=== PATIENT | female | born 1965 | race Caucasian/White ===

== ENCOUNTER 2017-03-20 05:49 | Observation (INO) | payer OTHER ==
[2017-03-16 17:17] VITALS: BMI 40.0
[~2017-03-20 05:49] MED LIST: DEXAMETHASONE SOD PHOSPHATE 10 MG/ML 1 ML VIAL IV ONE; LACTATED RINGERS 1,000 ML IV SCH; MIDAZOLAM 2 MG/2 ML VIAL IV PRN; ONDANSETRON 4 MG/2 ML VIAL IVP ONE; Pre Op ABX Message 1 EACH MISC MISCELLANE ONE
[2017-03-20] MEDS ORDERED: LIDOCAINE 1% 20 ML VIAL (10MG/ML) FOR IV START INTRADERMA ONE (07:00)
[2017-03-20 07:01] LABS: Glucose,Whole Blood 127 mg/dL (75-99)
[2017-03-20] MEDS ORDERED: NEOSTIGMINE 1 MG/ML 10 ML VIAL ONE (07:23)
[2017-03-20] MEDS ORDERED: HYDROmorphone (PF) 1 MG/ML ONE (07:23)
[2017-03-20] MEDS ORDERED: MIDAZOLAM 2 MG/2 ML VIAL ONE (07:23)
[2017-03-20] MEDS ORDERED: fentaNYL (PF) 50 MCG/ML 2 ML AMP ONE (07:23)
[2017-03-20] MEDS ORDERED: ROCURONIUM BROMIDE 10 MG/ML 10 ML VIAL IV ONE (07:23)
[2017-03-20] MEDS ORDERED: LIDOCAINE 1% INJ 10MG/ML (20 ML MDV) ONE (07:23)
[2017-03-20] MEDS ORDERED: PHENYLEPHRINE-0.9% NACL SYG 1 MG/10 ML SYRINGE ONE (07:23)
[2017-03-20] MEDS ORDERED: GLYCOPYRROLATE 0.2 MG/ML 2 ML VIAL ONE (07:23)
[2017-03-20] MEDS ORDERED: PROPOFOL 10 MG/ML 20 ML VIAL IV ONE (07:23)
[2017-03-20] MEDS ORDERED: SUCCINYLCHOLINE CHLORIDE VIAL 200 MG/10 ML VIAL IV ONE (07:23)
[2017-03-20] MEDS ORDERED: SODIUM CHLORIDE 0.9% 100 ML with ceFAZolin 2,000 MG IV ONE ×2 (07:40)
[2017-03-20] MEDS ORDERED: ceFAZolin 1,000 MG in SODIUM CHLORIDE 0.9% 1,000 ML IRRIGATION ONE (07:57)
[2017-03-20] MEDS ORDERED: hydrOXYzine PAMOATE 25 MG CAP PO PRN (08:57)
[2017-03-20] MEDS ORDERED: SENNOSIDES-DOCUSATE SODIUM 1 EACH TAB PO PRN (08:57)
[2017-03-20] MEDS ORDERED: TEMAZEPAM 15 MG CAP PO PRN (08:57)
[2017-03-20] MEDS ORDERED: ONDANSETRON 4 MG/2 ML VIAL IVP PRN (08:57)
[2017-03-20] MEDS ORDERED: HYDROmorphone 1 MG/ML 1 ML SYRINGE IVP PRN ×2 (08:57)
[2017-03-20] MEDS ORDERED: HYDROcodone/APAP 5-325MG 1 EACH TAB PO PRN (08:57)
[2017-03-20 09:00] VITALS: RESP 16
[2017-03-20] MEDS: HYDROmorphone 1 MG/ML 1 ML SYRINGE IVP PRN ×4 (09:03→21:30)
[2017-03-20 09:28] LABS: Glucose,Whole Blood 163 mg/dL (75-99)
[2017-03-20] MEDS ORDERED: NITROGLYCERIN SL TABS 0.4 MG TAB SUBLINGUAL PRN (10:18)
[2017-03-20] MEDS ORDERED: ALBUTEROL NEBULIZED 2.5 MG/3 ML INHALATION PRN (10:18)
[2017-03-20] MEDS: HYDROcodone/APAP 5-325MG 1 EACH TAB PO PRN ×3 (11:22→23:45)
[2017-03-20] MEDS: LOSARTAN 50 MG TAB PO SCH (11:23)
[2017-03-20] MEDS: METOPROLOL TARTRATE 25 MG TAB PO SCH (11:24)
[2017-03-20] MEDS: metFORMIN 500 MG TAB PO SCH ×2 (11:24→17:55)
[2017-03-20] MEDS: LACTATED RINGERS 1,000 ML IV SCH ×2 (11:25→22:52)
[2017-03-20 11:27] LABS: Glucose,Whole Blood 158 mg/dL (75-99)
[2017-03-20] MEDS: INSULIN LISPRO (humaLOG) 300 UNIT/3 ML VIAL SQ SCH ×3 (12:57→22:44)
[2017-03-20] MEDS: ceFAZolin 2 GM in SODIUM CHLORIDE 0.9% 100 ML IVPB SCH ×2 (15:35→23:45)
[2017-03-20] MEDS: HEPARIN SODIUM,PORCINE 5,000 UNIT/ML 1 ML VIAL SQ SCH ×2 (15:35→22:45)
[2017-03-20] MEDS: BENZOCAINE/MENTHOL LOZENG 1 EACH LOZENGE MUCOUS MEM PRN ×2 (16:07→21:30)
--- NOTE | 2017-03-20 16:20 | CONS ---
DATE OF CONSULTATION: REASON FOR CONSULTATION: Advice regarding management of diabetes mellitus, requested by Dr. Thomas. HISTORY OF PRESENT ILLNESS: This 51-year-old woman with a past medical history of multiple medical problems, including asthma, diabetes mellitus, fibromyalgia, hypertension, hyperlipidemia, history of DJD, sleep apnea, history of cholecystectomy, history of CAD, stent, being followed by Dr. Bharath Deng in the outpatient setting, underwent right shoulder arthroplasty by Dr. Thomas. The patient is being closely monitored. There is no history of any fever, rigor, or chills. No history of any headache, loss of consciousness, chest pain, palpitations, hematochezia, melena. No history of any diarrhea at this time. PAST MEDICAL HISTORY: 1. Asthma. 2. Diabetes mellitus. 3. Fibromyalgia. 4. Hypertension. 5. Hyperlipidemia. 6. History of myocardial infarction. 7. Sleep apnea; CPAP. 8. Appendectomy. 9. Cholecystectomy. 10. CAD, stent. HOME MEDICATIONS: 1. Glucophage 1000 mg p.o. b.i.d. 2. Cozaar 100 mg p.o. daily. 3. Synthroid 25 mcg p.o. daily. 4. Motrin 800 mg q.6 p.r.n. 5. Neurontin 600 mg p.o. t.i.d. 6. Cymbalta 60 mg p.o. daily. 7. Flexeril 10 mg at bedtime. 8. Vitamin D3, 4000 daily. 9. Aspirin 81 mg daily. 10. ProAir HFA 1 to 2 puffs q.6 p.r.n. 11. Zocor 40 mg at bedtime. 12. Nitrostat 0.4 sublingually q.5 p.r.n. 13. Lopressor 25 mg daily. 14. Senokot-S 2 tablets p.r.n. 15. Keflex 500 mg p.o. q.8 hours. ALLERGIES: 1. FAMVIR. 2. NIACIN. 3. COMPAZINE. 4. VALTREX. 5. VICODIN. FAMILY HISTORY: History of DVT in the family. SOCIAL HISTORY: Previous history of smoking. No history of alcohol intake. REVIEW OF SYSTEMS: ENT: No diminished hearing. No diminished vision. CARDIOVASCULAR: As mentioned earlier. RESPIRATORY: As mentioned earlier. GI: No nausea, vomiting. : No dysuria. NERVOUS SYSTEM: As mentioned earlier. ALLERGY/IMMUNOLOGY: No asthma, hayfever. MUSCULOSKELETAL: As mentioned earlier. HEMATOLOGY/ONCOLOGY: No history of anemia. ENDOCRINE: Diabetes mellitus, hypothyroidism. CONSTITUTIONAL: As mentioned earlier. DERMATOLOGY: Negative. RHEUMATOLOGY: Negative. PSYCHIATRY: As mentioned earlier. PHYSICAL EXAMINATION: Alert and oriented x3. Pulse is 108, blood pressure 140/94, regular rate and rhythm 16, temperature normal, pulse ox 96% on room air. HEENT: Conjunctivae normal. Oral mucosa moist. NECK: No jugular venous distention. No carotid bruit. No lymph node enlargement. CARDIOVASCULAR SYSTEM: S1 normal. S2 normal. No S3. No S4. RESPIRATORY SYSTEM: Breath sounds diminished at the bases. No rhonchi. No crackles. ABDOMEN: Soft, non-tender. No mass palpable. No hepatosplenomegaly. LEGS: No edema. No swelling. NERVOUS SYSTEM: Higher functions as mentioned earlier. Moves all 4 limbs. No focal motor or sensory deficit. LYMPHATICS: No lymph node palpable in neck, axillae or groin. SKIN: No ulcer, rash, bleeding. JOINTS: Status post right shoulder arthroplasty. ASSESSMENT: 1. Status post right shoulder arthroplasty. 2. Diabetes mellitus, type 2. 3. Asthma, chronic, intermittent. 4. Fibromyalgia. 5. Hypertension. 6. Hyperlipidemia. 7. Remote history of nicotine dependence. 8. History of myocardial infarction. 9. History of degenerative joint disease. 10. Sleep apnea. 11. Uses CPAP. 12. History of cholecystectomy. 13. History of coronary artery disease and stent. 14. FULL CODE. 15. Obesity with body mass index of 40. RECOMMENDATIONS AND DISCUSSION: In this 51-year-old woman who presented with multiple complex medical issues, we will monitor the patient closely, continue the current medications, continue symptomatic treatment. Otherwise, at this time I recommend continuing the home medications, DVT prophylaxis incentive spirometry. Will follow the patient closely with you. Patient may be asked to follow with primary physician closely in the outpatient setting. Thank you, Dr. Thomas, for letting us participate in the care of this patient. YON
[2017-03-20] MEDS: GABAPENTIN 300 MG CAP PO SCH ×2 (16:24→22:45)
[2017-03-20 17:04] LABS: Glucose,Whole Blood 117 mg/dL (75-99)
[2017-03-20 20:19] LABS: Glucose,Whole Blood 112 mg/dL (75-99)
[2017-03-20] MEDS ORDERED: ATORVASTATIN 20 MG TAB PO SCH (21:00)
[2017-03-20] MEDS ORDERED: CYCLOBENZAPRINE 10 MG TAB PO SCH (21:00)
[2017-03-21] MEDS: BENZOCAINE/MENTHOL LOZENG 1 EACH LOZENGE MUCOUS MEM PRN (04:54)
[2017-03-21] MEDS: HYDROcodone/APAP 5-325MG 1 EACH TAB PO PRN (05:47)
[2017-03-21] MEDS: LACTATED RINGERS 1,000 ML IV SCH (06:07)
[2017-03-21] MEDS ORDERED: LEVOTHYROXINE 25 MCG TAB PO SCH (06:30)
[2017-03-21 07:12] LABS: Glucose,Whole Blood 122 mg/dL (75-99)
[2017-03-21] MEDS ORDERED: HYDROcodone/APAP 10-325MG 1 EACH TAB PO PRN (07:58)
[2017-03-21] MEDS: INSULIN LISPRO (humaLOG) 300 UNIT/3 ML VIAL SQ SCH ×2 (08:28→12:26)
[2017-03-21] MEDS: metFORMIN 500 MG TAB PO SCH (08:29)
[2017-03-21] MEDS: METOPROLOL TARTRATE 25 MG TAB PO SCH (08:29)
[2017-03-21 08:30] VITALS: BP 138/75; PULSE 85; TEMP 98
[2017-03-21] MEDS: HEPARIN SODIUM,PORCINE 5,000 UNIT/ML 1 ML VIAL SQ SCH (08:30)
[2017-03-21] MEDS: GABAPENTIN 300 MG CAP PO SCH (08:30)
[2017-03-21] MEDS: LOSARTAN 50 MG TAB PO SCH (08:30)
[2017-03-21] MEDS: HYDROcodone/APAP 10-325MG 1 EACH TAB PO PRN ×2 (08:32→14:30)
[2017-03-21] MEDS ORDERED: ASPIRIN 81 MG CHEW PO SCH (09:00)
[2017-03-21] MEDS ORDERED: DULoxetine HCL 60 MG CAPSULE.DR PO SCH (09:00)
[2017-03-21] MEDS ORDERED: CHOLECALCIFEROL 1,000 UNIT TAB PO SCH (09:00)
[2017-03-21 11:49] LABS: Glucose,Whole Blood 80 mg/dL (75-99)
--- NOTE | 2017-03-21 17:10 | PN ---
DATE OF SERVICE: 03/21/2017 This 51-year-old woman who was admitted after right shoulder arthroplasty has improved significantly. No chest pain. No chest pain. No fever. Blood sugar has been monitored. On exam, alert and oriented x3. Pulse 85, blood pressure 138/75, respiratory rate 16, temperature 98 degrees, pulse ox 94% on room air. HEENT: Conjunctivae normal. NECK: No jugular venous distention. CARDIOVASCULAR SYSTEM: S1, S2 muffled. RESPIRATORY SYSTEM: Breath sounds diminished at the bases. No rhonchi. No crackles. ABDOMEN: Soft, non-tender. LEGS: No edema. No swelling. NERVOUS SYSTEM: No focal deficit. EXAMINATION OF RIGHT SHOULDER: Status post arthroplasty. LABS: Accu-Cheks 112, 122 and 80. ASSESSMENT: 1. Status post right shoulder arthroplasty. 2. Diabetes mellitus, type 2. 3. Asthma, chronic, intermittent. 4. Fibromyalgia history. 5. Hypertension, essential. 6. Hyperlipidemia. 7. Remote history of nicotine dependence. 8. History of myocardial infarction. 9. History of degenerative joint disease. 10. Sleep apnea. 11. History of CPAP usage. 12. History of cholecystectomy. 13. History of coronary artery disease and stent. 14. Obesity with body mass index of 40. 15. FULL CODE. RECOMMENDATIONS AND DISCUSSION: In this 51-year-old woman who presented with multiple complex medical issues, we will monitor the patient closely, continue the current medications, continue with symptomatic treatment, incentive spirometry. Otherwise, continue the home medications, pain medication, DVT prophylaxis and incentive spirometry. Follow closely with primary physician in the outpatient setting. Thank you, Dr. Thomas.
--- NOTE | 2017-03-22 22:50 | OP ---
DATE OF SERVICE: 03/20/2017 SURGEON: HARSH TUCKER DO CANTEEN OPERATOR: Ashlyn GARCIA PREOPERATIVE DIAGNOSIS: Torn right rotator cuff. POSTOPERATIVE DIAGNOSIS: Partial full-thickness tear of right rotator cuff with shoulder impingement. OPERATION: ANESTHESIA: ESTIMATED BLOOD LOSS: SPECIMENS REMOVED: COMPLICATIONS: OPERATIVE FINDINGS: DESCRIPTION OF PROCEDURE: Patient was taken to the operative suite and placed in supine position. General inhalation anesthesia was performed by Anesthesiology. She was placed in beach chair position and appropriately padded and secured. Betadine prep was carried out over the right shoulder. Sterile drapes were applied in the usual manner. A minimally invasive anterolateral incision was developed over the acromion. Sharp dissection through the subcutaneous tissue was performed. The superior acromioclavicular ligament was identified and dissected. The distal 1 cm of the clavicle was excised with a bone saw. Anterior deltoid was released along the anterolateral border. Coracoacromial ligament was released. Anterolateral decompression acromioplasty was performed. The width of the acromion was shaped with a bone saw and bone rasp. The tear was reapproximated with #1 Ethibond suture in running fashion. Area was irrigated. All the subacromial adhesions were dissected from the shoulder. The deltoid was then reapproximated back into the acromion with #1 Ethibond suture. Deep fascia was approximated with #1 Vicryl suture in running fashion. The subcutaneous tissue was reapproximated with 2-0 Vicryl suture in interrupted fashion. Skin was approximated with 3-0 Quill suture in subcuticular fashion. The incision was sealed with Dermabond. Sterile drapes were then applied. Patient was placed in an abductor pillow splint and transferred to the recovery room in satisfactory postoperative condition. GROSS PATHOLOGY: There was evidence of a partial-thickness tear of the right rotator cuff without bone avulsion previous decompression acromioplasty had been performed. YON
--- NOTE | 2017-04-05 13:56 | P.DS ---
Providers Date of admission: 03/21/17 03:26 Expected date of discharge: 03/21/17 Attending physician: Sarthak Thomas Consults: 03/20/17 08:57 Consult Physician Routine Consulting Provider: Molly Nielsen Consult Reason/Comments: medical management Do you want consulting provider notified?: Already Contacted Primary care physician: Bharath Justice Deng - Discharge Diagnosis(es) (1) Rotator cuff tear Status: Acute (2) Status post rotator cuff repair Status: Acute Hospital Course: This is a 51 year-old female with a known history of chronic impingement syndrome of the right shoulder. The patient presented to the orthopedic office for evaluation. After discussion and consideration the patient elects to proceed with a rotator cuff repair. The patient was seen preoperatively by her primary care physician and cleared for surgery. The patient was admitted to observation at [facility] on 03/20/2017 for a right shoulder rotator cuff repair with distal clavicle excision and acromioplasty by Dr. Thomas. The procedure was performed without complication or sequelae. The patient is doing well postoperatively. Labs and vital signs are stable and day of discharge. On the day of discharge the patient shoulder incision is healing well. There is minimal erythema. There is no drainage noted at this time. There is minimal soft tissue swelling to the [] upper extremity. The patient has full hand, wrist, and elbow motion without difficulty or pain. Neurovascular status to the right upper extremity is intact. The patient will be discharged home in good condition. Patient Condition at Discharge: Stable Plan - Discharge Summary New Discharge Prescriptions: Cephalexin [Keflex] 500 mg PO Q8HR #15 cap HYDROcodone/APAP 10-325MG [[place] 10-325] 1 - 2 tab PO Q4-6H PRN #90 tab PRN Reason: Pain Sennosides-Docusate Sodium [Senokot-S] 2 tab PO DAILY #30 tablet Discharge Medication List Albuterol Sulfate [Proair Hfa] 1 - 2 puff INHALATION RT-Q6H PRN 03/16/17 [ History] Aspirin 81 mg PO DAILY 03/16/17 [History] Cholecalciferol [Vitamin D3] 4,000 unit PO DAILY 03/16/17 [History] Cyclobenzaprine [Flexeril] 10 mg PO HS 03/16/17 [History] DULoxetine HCL [Cymbalta] 60 mg PO DAILY 03/16/17 [History] Gabapentin [Neurontin] 600 mg PO TID 03/16/17 [History] Ibuprofen [Motrin] 800 mg PO Q6HR PRN 03/16/17 [History] Levothyroxine Sodium [Synthroid] 25 mcg PO DAILY 03/16/17 [History] Losartan Potassium [Cozaar] 100 mg PO DAILY 03/16/17 [History] Metoprolol Tartrate [Lopressor] 25 mg PO DAILY 03/16/17 [History] Nitroglycerin Sl Tabs [Nitrostat] 0.4 mg SUBLINGUAL Q5M PRN 03/16/17 [History] Simvastatin [Zocor] 40 mg PO HS 03/16/17 [History] metFORMIN HCL [Glucophage] 1,000 mg PO BID 03/16/17 [History] Cephalexin [Keflex] 500 mg PO Q8HR #15 cap 03/20/17 [Rx] Sennosides-Docusate Sodium [Senokot-S] 2 tab PO DAILY #30 tablet 03/20/17 [Rx] HYDROcodone/APAP 10-325MG [[place] 10-325] 1 - 2 tab PO Q4-6H PRN #90 tab [Rx] Follow up Appointment(s)/Referral(s): Sarthak Thomas DO [Doctor of Osteopathic Medicine] - 04/04/17 9:30 am Patient Instructions/Handouts: Cephalexin (By mouth), Hydrocodone/ Acetaminophen (By mouth), Laxative, Stimulant Combination (By mouth), Rotator Cuff Tear Repair (DC) Activity/Diet/Wound Care/Special Instructions: Keep incision clean and dry Change dressing daily May shower in 3 days if no drainage from incision Keep arm sling/abductor pillow in place except when bathing Follow up with Dr. Thomas in 2 weeks. Call [facility] with any questions or concerns. [phone] Discharge Disposition: HOME SELF-CARE
== END 2017-03-21 15:09 | disposition home or self-care (01) ==
LOC: OR 05:49 → 5ONC 08:41 → OR 03-21 03:26
PROVIDERS: ADMIT Orthopaedic Surgery; ATTEND Orthopaedic Surgery
DX: M75.101 Unspecified rotator cuff tear or rupture of right shoulder, not specified as traumatic (principal); M75.41 Impingement syndrome of right shoulder; E11.9 Type 2 diabetes mellitus without complications; J45.20 Mild intermittent asthma, uncomplicated; M79.7 Fibromyalgia; I10 Essential (primary) hypertension; E78.5 Hyperlipidemia, unspecified; I25.2 Old myocardial infarction; G47.30 Sleep apnea, unspecified; Z99.89 Dependence on other enabling machines and devices; I25.10 Atherosclerotic heart disease of native coronary artery without angina pectoris; E03.9 Hypothyroidism, unspecified; M19.90 Unspecified osteoarthritis, unspecified site; Z68.41 Body mass index [BMI] 40.0-44.9, adult; E66.9 Obesity, unspecified; Z95.5 Presence of coronary angioplasty implant and graft; Z79.84 Long term (current) use of oral hypoglycemic drugs; Z79.899 Other long term (current) drug therapy; Z79.82 Long term (current) use of aspirin; Z87.891 Personal history of nicotine dependence; Z88.8 Allergy status to other drugs, medicaments and biological substances; Z88.5 Allergy status to narcotic agent
CPT/HCPCS: 23412; 23130; 96376; 96365; 96366; 96375; 83036; G0378; J2250; J0330; J1644 ×2; J1100; J2710; J0690 ×3; J2405; J2001; J3010; J1170; J2370; J2704

== ENCOUNTER 2019-01-06 15:23 | Emergency (ER) | payer BC ==
[2019-01-06 15:30] VITALS: TEMP 99.5
[2019-01-06] MEDS ORDERED: FAMOTIDINE 20 MG/2 ML VIAL IV STA (15:59)
[2019-01-06] MEDS ORDERED: diphenhydrAMINE 50 MG/ML 1 ML VIAL IVP STA (15:59)
--- NOTE | 2019-01-06 16:21 | ED ---
Allergic Reaction HPI - General Chief complaint: Allergic Reaction Stated complaint: med reaction Time Seen by Provider: 01/06/19 15:54 Source: patient, EMS, RN notes reviewed Mode of arrival: EMS Limitations: no limitations - History of Present Illness Initial Comments: 53-year-old female presents emergency Department by EMS for ALLERGIC reaction. Patient states that she's been sick recently was given a Medrol Dosepak and amoxicillin by PCP today took meds around 2:30 in reaction started around this time. Patient states that she's taken amoxicillin in the past no difficulty. Patient states she is having difficulty breathing broke out diffuse rash and hives. Patient was given epi, 25 mg Benadryl and Solu-Medrol EMS she does feel improved at this time. - Related Data Home Medications Medication Instructions Recorded Confirmed Albuterol Sulfate [Proair Hfa] 1 - 2 puff INHALATION RT-Q6H PRN 03/16/17 Aspirin 81 mg PO DAILY 03/16/17 03/21/17 Cholecalciferol [Vitamin D3] 4,000 unit PO DAILY 03/16/17 03/21/17 Cyclobenzaprine [Flexeril] 10 mg PO HS 03/16/17 03/21/17 DULoxetine HCL [Cymbalta] 60 mg PO DAILY 03/16/17 03/21/17 Gabapentin [Neurontin] 600 mg PO TID 03/16/17 03/21/17 Ibuprofen [Motrin] 800 mg PO Q6HR PRN 03/16/17 03/21/17 Levothyroxine Sodium [Synthroid] 25 mcg PO DAILY 03/16/17 03/21/17 Losartan Potassium [Cozaar] 100 mg PO DAILY 03/16/17 03/21/17 Metoprolol Tartrate [Lopressor] 25 mg PO DAILY 03/16/17 03/21/17 Nitroglycerin Sl Tabs [Nitrostat] 0.4 mg SUBLINGUAL Q5M PRN 03/16/17 03/21/17 Simvastatin [Zocor] 40 mg PO HS 03/16/17 03/21/17 metFORMIN HCL [Glucophage] 1,000 mg PO BID 03/16/17 03/21/17 Previous Rx's Medication Instructions Recorded Cephalexin [Keflex] 500 mg PO Q8HR #15 cap 03/20/17 Sennosides-Docusate Sodium 2 tab PO DAILY #30 tablet 03/20/17 [Senokot-S] HYDROcodone/APAP 10-325MG [[place] 1 - 2 tab PO Q4-6H PRN #90 tab 03/21/17 10-325] EPINEPHrine [Epipen 2-Werner] 0.3 mg IM ONCE PRN #1 pack 01/06/19 diphenhydrAMINE [Benadryl] 50 mg PO QID PRN #20 capsule 01/06/19 predniSONE 50 mg PO DAILY #3 tab 01/06/19 Allergies Allergy/AdvReac Type Severity Reaction Status Date / Time amoxicillin Allergy Anaphylaxis Verified 01/06/19 15:27 azithromycin Allergy Anaphylaxis Verified 01/06/19 15:27 famciclovir [From Famvir] Allergy Unknown Verified 03/21/17 07:31 niacin Allergy Rash/Hives Verified 03/21/17 07:31 [From Niaspan Extended-Release] prochlorperazine Allergy tardive Verified 03/21/17 07:31 [From Compazine] dyskinesia valacyclovir [From Valtrex] Allergy Unknown Verified 03/21/17 07:31 acetaminophen [From Vicodin] AdvReac Nausea & Verified 03/21/17 07:31 Vomiting hydrocodone [From Vicodin] AdvReac Nausea & Verified 03/21/17 07:31 Vomiting Review of Systems ROS Statement: Those systems with pertinent positive or pertinent negative responses have been documented in the HPI. ROS Other: All systems not noted in ROS Statement are negative. Past Medical History Past Medical History: Asthma, Diabetes Mellitus, Fibromyalgia, Hyperlipidemia, Hypertension, Myocardial Infarction (PR), Osteoarthritis (OA), Sleep Apnea/CPAP/ BIPAP Additional Past Medical History / Comment(s): uses CPAP Last Myocardial Infarction Date:: 2007 History of Any Multi-Drug Resistant Organisms: None Reported Past Surgical History: Appendectomy, Cholecystectomy, Heart Catheterization With Stent, Hysterectomy, Orthopedic Surgery Additional Past Surgical History / Comment(s): joseph. heel spurs, arthroscopy knees, growth removed from throat Past Anesthesia/Blood Transfusion Reactions: No Reported Reaction Date of Last Stent Placement:: 2007 Past Psychological History: No Psychological Hx Reported Smoking Status: Former smoker Past Alcohol Use History: None Reported Past Drug Use History: None Reported - Past Family History Sister(s) Family Medical History: Deep Vein Thrombosis (DVT) Father Family Medical History: Cancer General Exam Limitations: no limitations General appearance: alert, in no apparent distress Head exam: Present: atraumatic, normocephalic, normal inspection Eye exam: Present: normal appearance, PERRL, EOMI. Absent: scleral icterus, conjunctival injection, periorbital swelling ENT exam: Present: normal exam, normal oropharynx, mucous membranes moist Neck exam: Present: normal inspection, full ROM. Absent: tenderness, meningismus, lymphadenopathy Respiratory exam: Present: normal lung sounds bilaterally. Absent: respiratory distress, wheezes, rales, rhonchi, stridor Cardiovascular Exam: Present: normal rhythm, tachycardia, normal heart sounds. Absent: systolic murmur, diastolic murmur, rubs, gallop, clicks GI/Abdominal exam: Present: soft, normal bowel sounds. Absent: distended, tenderness, guarding, rebound, rigid Neurological exam: Present: alert, oriented X3, CN II-XII intact Skin exam: Present: rash, urticaria Course Vital Signs 01/06/19 15:27 Temperature 99.5 F Pulse Rate 113 H Respiratory 18 Rate Blood Pressure 178/95 O2 Sat by Pulse 97 Oximetry Medical Decision Making - Medical Decision Making 53-year-old female presents emergency Department for ALLERGIC reaction. Patient had anaphylactic reaction to most likely antibiotics. Patient will be given prednisone 3 days, continuation of Benadryl and EpiPen. Patient has improved and symptoms have resolved after treatment and observation emergency Department Disposition Clinical Impression: Anaphylaxis Disposition: HOME SELF-CARE Condition: Stable Instructions (If sedation given, give patient instructions): Anaphylaxis (ED) Additional Instructions: Please return to the Emergency Department if symptoms worsen or any other concerns. Prescriptions: diphenhydrAMINE [Benadryl] 50 mg PO QID PRN #20 capsule PRN Reason: allergic symptoms EPINEPHrine [Epipen 2-Werner] 0.3 mg IM ONCE PRN #1 pack PRN Reason: Anaphylaxis predniSONE 50 mg PO DAILY #3 tab Is patient prescribed a controlled substance at d/c from ED?: No Referrals: Gus Joseph MD [Primary Care Provider] - 1-2 days Time of Disposition: 16:34
[2019-01-06 16:55] VITALS: BP 138/80; PULSE 76; RESP 16
== END 2019-01-06 16:55 | disposition home or self-care (01) ==
LOC: EC 15:23
DX: T88.6XXA Anaphylactic reaction due to adverse effect of correct drug or medicament properly administered, initial encounter (principal); T38.0X5A Adverse effect of glucocorticoids and synthetic analogues, initial encounter; T36.0X5A Adverse effect of penicillins, initial encounter; I10 Essential (primary) hypertension; J45.909 Unspecified asthma, uncomplicated; E11.9 Type 2 diabetes mellitus without complications; M79.7 Fibromyalgia; E78.5 Hyperlipidemia, unspecified; G47.30 Sleep apnea, unspecified; I25.2 Old myocardial infarction; Z79.84 Long term (current) use of oral hypoglycemic drugs; Z79.82 Long term (current) use of aspirin; Z79.890 Hormone replacement therapy; Z79.899 Other long term (current) drug therapy; Z88.0 Allergy status to penicillin; Z88.1 Allergy status to other antibiotic agents; Z88.8 Allergy status to other drugs, medicaments and biological substances; Z88.5 Allergy status to narcotic agent; Z88.6 Allergy status to analgesic agent; Z87.891 Personal history of nicotine dependence; Z95.5 Presence of coronary angioplasty implant and graft; Z99.89 Dependence on other enabling machines and devices
CPT/HCPCS: 99284; 96374; 96375; J1200

== ENCOUNTER 2019-09-25 17:42 | Observation (INO) | payer BC ==
[2019-09-25] MEDS ORDERED: KETOROLAC 30 MG/ML 1 ML VIAL IVP STA (17:51)
--- NOTE | 2019-09-25 18:07 | ED ---
Chest Pain HPI - General Chief Complaint: Chest Pain Stated Complaint: Chest pain Time Seen by Provider: 09/25/19 17:42 Source: patient, EMS, RN notes reviewed Mode of arrival: EMS - History of Present Illness Initial Comments: This is a 53-year-old female with a history of AL and stent placement in the RCA 11 years ago who states she had the onset about 45 minutes to 60 minutes prior to arrival of mid lower sternal chest pain markedly severe in nature H/10 severity she was given aspirin as well as 3 nitroglycerin and IV pain medication and was brought down to a 6. She has some diaphoresis. He had some shortness of breath. She was at work at this time. No recent fevers chills nausea vomiting sweats cough or phlegm production prior to this. No other modifying factors at this time MD Complaint: chest pain - Related Data Home Medications Medication Instructions Recorded Confirmed Albuterol Sulfate [Proair Hfa] 1 - 2 puff INHALATION RT-Q6H PRN 03/16/17 01/06/19 Aspirin 81 mg PO DAILY 03/16/17 01/06/19 Cholecalciferol [Vitamin D3] 4,000 unit PO DAILY 03/16/17 01/06/19 Cyclobenzaprine [Flexeril] 10 mg PO HS 03/16/17 01/06/19 DULoxetine HCL [Cymbalta] 60 mg PO DAILY 03/16/17 01/06/19 Gabapentin [Neurontin] 600 mg PO TID 03/16/17 01/06/19 Ibuprofen [Motrin] 800 mg PO Q6HR PRN 03/16/17 01/06/19 Levothyroxine Sodium [Synthroid] 25 mcg PO DAILY 03/16/17 01/06/19 Losartan Potassium [Cozaar] 100 mg PO DAILY 03/16/17 01/06/19 Nitroglycerin Sl Tabs [Nitrostat] 0.4 mg SUBLINGUAL Q5M PRN 03/16/17 01/06/19 Simvastatin [Zocor] 40 mg PO HS 03/16/17 01/06/19 metFORMIN HCL [Glucophage] 1,000 mg PO BID 03/16/17 01/06/19 Cyanocobalamin (Vitamin B-12) 1,000 mcg PO DAILY 01/06/19 01/06/19 [Vitamin B-12] Sennosides-Docusate Sodium 2 tab PO DAILY PRN 01/06/19 01/06/19 [Senokot-S] sitaGLIPtin [Januvia] 100 mg PO DAILY 01/06/19 01/06/19 Previous Rx's Medication Instructions Recorded EPINEPHrine [Epipen 2-Werner] 0.3 mg IM ONCE PRN #1 pack 01/06/19 diphenhydrAMINE [Benadryl] 50 mg PO QID PRN #20 capsule 01/06/19 predniSONE 50 mg PO DAILY #3 tab 01/06/19 Allergies Allergy/AdvReac Type Severity Reaction Status Date / Time amoxicillin Allergy Anaphylaxis Verified 01/06/19 16:35 azithromycin Allergy Anaphylaxis Verified 01/06/19 16:35 famciclovir [From Famvir] Allergy Unknown Verified 01/06/19 16:35 niacin Allergy Rash/Hives Verified 01/06/19 16:35 [From Niaspan Extended-Release] prochlorperazine Allergy tardive Verified 01/06/19 16:35 [From Compazine] dyskinesia valacyclovir [From Valtrex] Allergy Unknown Verified 01/06/19 16:35 acetaminophen [From Vicodin] AdvReac Nausea & Verified 01/06/19 16:35 Vomiting hydrocodone [From Vicodin] AdvReac Nausea & Verified 01/06/19 16:35 Vomiting Review of Systems ROS Statement: Those systems with pertinent positive or pertinent negative responses have been documented in the HPI. ROS Other: All systems not noted in ROS Statement are negative. EKG Findings - EKG Results: EKG: interpreted by ERMD, sinus rhythm (EKG shows sinus tachycardia of 106. Interval 154 QRS duration 96 QT since QTC 366/46 nonspecific anterior configuration.) Past Medical History Past Medical History: Asthma, Diabetes Mellitus, Fibromyalgia, Hyperlipidemia, Hypertension, Myocardial Infarction (AL), Osteoarthritis (OA), Sleep Apnea/CPAP/BIPAP Additional Past Medical History / Comment(s): uses CPAP Last Myocardial Infarction Date:: 2007 History of Any Multi-Drug Resistant Organisms: None Reported Past Surgical History: Appendectomy, Cholecystectomy, Heart Catheterization With Stent, Hysterectomy, Orthopedic Surgery Additional Past Surgical History / Comment(s): joseph. heel spurs, arthroscopy knees, growth removed from throat Past Anesthesia/Blood Transfusion Reactions: No Reported Reaction Date of Last Stent Placement:: 2007 Past Psychological History: No Psychological Hx Reported Smoking Status: Former smoker Past Alcohol Use History: None Reported Past Drug Use History: None Reported - Past Family History Sister(s) Family Medical History: Deep Vein Thrombosis (DVT) Father Family Medical History: Cancer General Exam - General Exam Comments Initial Comments: This is a well-developed well-nourished awake alert oriented 3 female General appearance: alert, anxious Head exam: Present: atraumatic, normocephalic, normal inspection Eye exam: Present: normal appearance, PERRL, EOMI. Absent: scleral icterus, conjunctival injection, periorbital swelling ENT exam: Present: normal exam, mucous membranes moist Neck exam: Present: normal inspection, full ROM, other (No stridor JVD or bruits). Absent: tenderness, meningismus, lymphadenopathy Respiratory exam: Present: normal lung sounds bilaterally, chest wall tenderness (Tennis palpation along the costosternal margins mostly on the right.). Absent: respiratory distress, wheezes, rales, rhonchi, stridor Cardiovascular Exam: Present: normal rhythm, tachycardia, normal heart sounds. Absent: systolic murmur, diastolic murmur, rubs, gallop, clicks GI/Abdominal exam: Present: soft, normal bowel sounds. Absent: distended, tenderness, guarding, rebound, rigid Extremities exam: Present: normal inspection, full ROM, normal capillary refill. Absent: tenderness, pedal edema, joint swelling, calf tenderness Back exam: Present: normal inspection Neurological exam: Present: alert, oriented X3, CN II-XII intact Psychiatric exam: Present: normal affect, normal mood Skin exam: Present: warm, dry, intact, normal color. Absent: rash Course Vital Signs 09/25/19 09/25/19 17:44 19:08 Temperature 98.4 F Pulse Rate 115 H 87 Respiratory 20 18 Rate Blood Pressure 163/95 154/80 O2 Sat by Pulse 99 96 Oximetry Chest Pain MDM - MDM I did review the imaging and report no acute findings. Patient does have continued chest discomfort though it is atypical and likely somewhat secondary to chest wall. She will be admitted I did discuss the case with her and with Dr. Villalpando. Disposition Clinical Impression: Atypical chest pain, Chest wall syndrome Disposition: ADMITTED IP TO THIS HOSP Condition: Fair Referrals: Gus Joseph MD [Primary Care Provider] - 1-2 days
[2019-09-25 18:08] LABS: Basophils # (A) 0.1 k/uL (0-0.2); Basophils % (A) 1 %; Eosinophils # (A) 0.6 k/uL (0-0.7); Eosinophils % (A) 5 %; Lymphocytes # (A) 3.7 k/uL (1.0-4.8); Lymphocytes % (A) 30 %; MCH 29.4 pg (25.0-35.0); MCHC 33.3 g/dL (31.0-37.0); MCV 88.4 fL (80.0-100.0); Monocytes # (A) 0.6 k/uL (0-1.0); Monocytes % (A) 5 %; Neutrophils # (A) 7.1 k/uL (1.3-7.7); Neutrophils % (A) 57 %; Platelet Count 372 k/uL (150-450); RBC 4.75 m/uL (3.80-5.40); RDW 12.4 % (11.5-15.5); WBC 12.4 k/uL (3.8-10.6)
[2019-09-25 18:10] LABS: ALT 40 U/L (9-52); AST 45 U/L (14-36); African American GFR (CKD) >90 (>60 ml/min/1.73 sqM); Albumin 4.4 g/dL (3.5-5.0); Alkaline Phosphatase 71 U/L (38-126); Anion Gap 12 mmol/L; Blood Urea Nitrogen 9 mg/dL (7-17); Calcium 9.6 mg/dL (8.4-10.2); Carbon Dioxide 22 mmol/L (22-30); Chloride 103 mmol/L (98-107); Creatine Kinase 94 U/L (30-135); Glucose 183 mg/dL (74-99); Magnesium 1.6 mg/dL (1.6-2.3); Non-African American GFR(CKD) >90 (>60 ml/min/1.73 sqM); Potassium 3.9 mmol/L (3.5-5.1); Sodium 137 mmol/L (137-145); Total Bilirubin 0.2 mg/dL (0.2-1.3); Total Protein 7.6 g/dL (6.3-8.2)
[2019-09-25 18:26] LABS: D-Dimer 0.27 mg/L FEU (<0.60); INR 0.9 (<1.2); Partial Thromboplastin Time 23.2 sec (22.0-30.0); Prothrombin Time 9.6 sec (9.0-12.0)
--- NOTE | 2019-09-25 18:36 | XR ---
EXAMINATION TYPE: XR chest 2V DATE OF EXAM: 09/25/2019 COMPARISON: 09/18/2012 HISTORY: Chest pain TECHNIQUE: Frontal and lateral views of the chest are obtained. FINDINGS: Heart and mediastinum are normal. Lungs are clear. Diaphragm is normal. Bony thorax appear s normal. There are chest leads. IMPRESSION: Normal chest. No change.
[2019-09-25] MEDS ORDERED: NITROGLYCERIN SL TABS 0.4 MG TAB SUBLINGUAL PRN (19:18)
[2019-09-25] MEDS ORDERED: HEPARIN SODIUM,PORCINE 5,000 UNIT/ML 1 ML VIAL IV ONE (19:18)
[2019-09-25] MEDS ORDERED: ALBUTEROL NEBULIZED 2.5 MG/3 ML INHALATION PRN (19:20)
[2019-09-25] MEDS ORDERED: diphenhydrAMINE 50 MG CAP PO PRN (19:20)
[2019-09-25] MEDS ORDERED: SENNOSIDES-DOCUSATE SODIUM 1 EACH TAB PO PRN (19:20)
[2019-09-25] MEDS ORDERED: HEPARIN SOD,PORK IN 0.45% NACL 25,000 UNIT in 0.45% NACL 1 250ML.BAG IV SCH (19:30)
[2019-09-25] MEDS: SODIUM CHLORIDE 0.9% 1,000 ML IV SCH (19:37)
[2019-09-25] MEDS ORDERED: HEPARIN SODIUM,PORCINE 5,000 UNIT/ML 1 ML VIAL IV PRN (19:58)
[2019-09-25 20:22] LABS: Glucose,Whole Blood 126 mg/dL (75-99)
[2019-09-25] MEDS: ATORVASTATIN 20 MG TAB PO SCH (21:09)
[2019-09-25] MEDS: GABAPENTIN 300 MG CAP PO SCH (21:09)
[2019-09-25] MEDS: CYCLOBENZAPRINE 10 MG TAB PO SCH (21:09)
[2019-09-25] MEDS: metFORMIN 500 MG TAB PO SCH (21:09)
[2019-09-25] MEDS: IBUPROFEN 800 MG TAB PO PRN (23:24)
[2019-09-25] MEDS: NITROGLYCERIN OINT 1 INCH/GM PACKET TOPICAL SCH (23:24)
[2019-09-26 04:52] VITALS: RESP 18
[2019-09-26] MEDS: LEVOTHYROXINE 25 MCG TAB PO SCH (06:38)
[2019-09-26] MEDS: IBUPROFEN 800 MG TAB PO PRN ×2 (06:38→14:35)
[2019-09-26] MEDS: NITROGLYCERIN OINT 1 INCH/GM PACKET TOPICAL SCH (06:38)
[2019-09-26 06:44] LABS: Glucose,Whole Blood 145 mg/dL (75-99)
[2019-09-26] MEDS ORDERED: ASPIRIN 325 MG TAB PO SCH (09:00)
--- NOTE | 2019-09-26 09:27 | ECHOF ---
Referral Reason:cp MEASUREMENTS -------- HEIGHT: 167.6 cm WEIGHT: 108.4 kg BP: RVIDd: 2.4 cm (< 3.3) IVSd: 1.4 cm (0.6 - 1.1) LVIDd: 3.6 cm (3.9 - 5.3) LVPWd: 1.4 cm (0.6 - 1.1) IVSs: 1.9 cm LVIDs: 2.3 cm LVPWs: 2.0 cm LAESV Index (A-L): 18.29 ml/m Ao Diam: 3.4 cm (2.0 - 3.7) AV Cusp: 1.7 cm (1.5 - 2.6) LA Diam: 3.2 cm (2.7 - 3.8) MV EXCURSION: 17.007 mm (> 18.000) MV EF SLOPE: 66 mm/s (70 - 150) EPSS: 0.5 cm MV E Angel: 1.09 m/s MV DecT: 229 ms MV A Angel: 1.06 m/s MV E/A Ratio: 1.03 RAP: 5.00 mmHg RVSP: 9.79 mmHg FINDINGS -------- Sinus rhythm. This was a technically adequate study. The left ventricular size is normal. There is moderate concentric left ventricular hypertrophy. O verall left ventricular systolic function is normal with, an EF between 55 - 60 %. Normal LAP Grade 1 Diastolic Dysfunction. The right ventricle is normal in size. The left atrial size is normal. Normal LA size by volume 22+/-6 ml/m2. The right atrial size is normal. The aortic valve was not well visualized. The mitral valve is normal. There is trace mitral regurgitation. The tricuspid valve appears structurally normal. Trace tricuspid regurgitation present. Right tameka tricular systolic pressure is normal at < 35 mmHg. There is no pulmonic regurgitation present. The aortic root size is normal. IVC Not well visulized. There is no pericardial effusion. CONCLUSIONS -------- 1. Sinus rhythm. 2. This was a technically adequate study. 3. The left ventricular size is normal. 4. There is moderate concentric left ventricular hypertrophy. 5. Overall left ventricular systolic function is normal with, an EF between 55 - 60 %. 6. Normal LAP Grade 1 Diastolic Dysfunction. 7. The right ventricle is normal in size. 8. The left atrial size is normal. 9. Normal LA size by volume 22+/-6 ml/m2. 10. The right atrial size is normal. 11. The aortic valve was not well visualized. 12. The mitral valve is normal. 13. There is trace mitral regurgitation. 14. The tricuspid valve appears structurally normal. 15. Trace tricuspid regurgitation present. 16. Right ventricular systolic pressure is normal at < 35 mmHg. 17. There is no pulmonic regurgitation present. 18. The aortic root size is normal. 19. IVC Not well visulized. 20. There is no pericardial effusion. EMERGENCY CARE TECH: Ida Corcoran RDCS
[2019-09-26] MEDS ORDERED: DOBUTamine DRIP for NUC MED 500 MG in DEXTROSE/WATER 1 250ML.BAG IV ONE (09:58)
--- NOTE | 2019-09-26 10:14 | P.CRDCN ---
History of Present Illness History of present illness: HISTORY OF PRESENTING ILLNESS This is a pleasant 53-year-old female past medical history significant for coronary artery disease, myocardial infarction, diabetes mellitus, hyperten rosario, dyslipidemia, former nicotine dependence and hypothyroidism. She presented with chest pain. She follows in the office with Dr. Sherwood although it has been a few years since her last office visit. We have been asked to see him in consultation for chest pain. She states yesterday while at work she was putting parts on the shelf that weighed approximately 20 pounds. While lifting these parts up above her head she had an acute onset of a tight squeezing pain in the chest that radiated to the left shoulder. This was associated with shortness of breath, nausea, rapid heartbeat and diaphoresis. She sat down and called EMS. Her symptoms persisted and have not fully subsided. She did receive sublingual nitroglycerin per EMS but did dissipate her pain somewhat but not completely. DIAGNOSTICS EKG reveals sinus tachycardia heart rate 106, poor R-wave progression and inferior Q-wave secondary to previous inferior wall NH. Chest xray negative for an acute cardiopulmonary process. Laboratory reviewed, cardiac enzymes negative 2, d-dimer unremarkable, WBC 12.4, lipase 510. Current cardiac medications include aspirin 81 mg daily, losartan 100 mg daily, simvastatin 40 mg daily. REVIEW OF SYSTEMS At the time of my exam: CONSTITUTIONAL: Denies fever or chills. CARDIOVASCULAR: Denies chest pain, shortness of breath, orthopnea, PND or palpitations. RESPIRATORY: Denies cough. GASTROINTESTINAL: Denies abdominal pain, diarrhea, constipation, nausea or vomiting. MUSCULOSKELETAL: Denies myalgias. NEUROLOGIC: Denies numbness, tingling or weakness. ENDOCRINE: Denies fatigue, weight change, polydipsia or polyurina. GENITOURINARY: Denies burning, hematuria or urgency with micturation. HEMATOLOGIC: Denies history of anemia or bleeding. PHYSICAL EXAMINATION Blood pressure 152/86 heart rate 77 afebrile and maintaining oxygen saturaiton on room air. CONSTITUTIONAL: No apparent distress. HEENT: Head is normocephalic. Pupils are equal, round. Sclerae anicteric. Mucous membranes of the mouth are moist. No JVD. No carotid bruit. CHEST EXAMINATION: Lungs are clear to auscultation. Positive chest wall tenderness is noted on palpation, not with deep breathing. HEART EXAMINATION: Regular rate and rhythm. S1, S2 heard. No murmurs, gallops or rub. ABDOMEN: Soft, mildly tender epigastric region. Positive bowel sounds. EXTREMITIES: 2+ peripheral pulses, no lower extremity edema and no calf tenderness. NEUROLOGIC EXAMINATION: Patient is awake, alert and oriented x3. ASSESSMENT Chest pain, atypical for angina. An acute event has been ruled out. Epigastric reproducible discomfort with elevated lipase, could be underlying pancreatitis Leukocytosis History of coronary artery disease s/p PCI RCA 2007 History of myocardial infarction Hypertension Dyslipidemia Diabetes mellitus Obesity, BMI 38 PLAN An acute coronary event has been ruled out. Obtain 2D echocardiogram and doppler study to assess cardiac structure and function. Perform dobutamine stress echocardiogram and doppler study to assess for stress induced ischemia. Pain is atypical and reproducible may be related to underlying pancreatitis, however will rule out progression of disease. If stress test is normal, ongoing evaluation of GI etiology of pain per primary care team. Thank you kindly for this consultation. Nurse Practitioner note has been reviewed, I agree with a documented findings and plan of care. Patient was seen and examined. Past Medical History Past Medical History: Asthma, Diabetes Mellitus, Fibromyalgia, Hyperlipidemia, Hypertension, Myocardial Infarction (NH), Osteoarthritis (OA), Sleep Apnea/CPAP/BIPAP, Thyroid Disorder Additional Past Medical History / Comment(s): uses CPAP, hypothyroid Last Myocardial Infarction Date:: 2007 History of Any Multi-Drug Resistant Organisms: None Reported Past Surgical History: Appendectomy, Cholecystectomy, Heart Catheterization With Stent, Hysterectomy, Orthopedic Surgery Additional Past Surgical History / Comment(s): joseph. heel spurs, arthroscopy knees, growth removed from throat Past Anesthesia/Blood Transfusion Reactions: No Reported Reaction Date of Last Stent Placement:: 2007 Past Psychological History: Depression Additional Psychological History / Comment(s): depression well controlled on current medications Smoking Status: Former smoker Past Alcohol Use History: None Reported Additional Past Alcohol Use History / Comment(s): quit smoking 01-09-07, smoked up to 3ppd for 25 yrs. Past Drug Use History: None Reported - Past Family History Sister(s) Family Medical History: Deep Vein Thrombosis (DVT) Father Family Medical History: Cancer Medications and Allergies Home Medications Medication Instructions Recorded Confirmed Type Aspirin 81 mg PO DAILY@1000 03/16/17 09/25/19 History Cholecalciferol [Vitamin D3] 4,000 unit PO DAILY@1000 03/16/17 09/25/19 History Cyclobenzaprine [Flexeril] 10 mg PO HS@0000 03/16/17 09/25/19 History DULoxetine HCL [Cymbalta] 60 mg PO DAILY@1000 03/16/17 09/25/19 History Gabapentin [Neurontin] 600 mg PO TID PRN 03/16/17 09/25/19 History Levothyroxine Sodium [Synthroid] 25 mcg PO DAILY@1000 03/16/17 09/25/19 History Losartan Potassium [Cozaar] 100 mg PO DAILY@1000 03/16/17 09/25/19 History Simvastatin [Zocor] 40 mg PO HS@0000 03/16/17 09/25/19 History metFORMIN HCL [Glucophage] 1,000 mg PO BID@1000,0000 03/16/17 09/25/19 History Cyanocobalamin (Vitamin B-12) 1,000 mcg PO DAILY@1000 01/06/19 09/25/19 History [Vitamin B-12] EPINEPHrine [Epipen 2-Werner] 0.3 mg IM ONCE PRN #1 pack 01/06/19 09/25/19 Rx sitaGLIPtin [Januvia] 100 mg PO DAILY@99901/06/19 09/25/19 History Albuterol Sulfate [Ventolin HFA] 1 - 2 puff INHALATION RT-QID PRN 09/25/19 History Ibuprofen [Motrin] 800 mg PO TID PRN 09/25/19 09/25/19 History Sertraline [Zoloft] 50 mg PO DAILY@99909/25/19 09/25/19 History Allergies Allergy/AdvReac Type Severity Reaction Status Date / Time amoxicillin Allergy Anaphylaxis Verified 09/25/19 20:24 azithromycin Allergy Anaphylaxis Verified 09/25/19 20:24 famciclovir [From Famvir] Allergy Unknown Verified 09/25/19 20:24 niacin Allergy Rash/Hives Verified 09/25/19 20:24 [From Niaspan Extended-Release] prochlorperazine Allergy tardive Verified 09/25/19 20:24 [From Compazine] dyskinesia valacyclovir [From Valtrex] Allergy Unknown Verified 09/25/19 20:24 acetaminophen [From Vicodin] AdvReac Nausea & Verified 09/25/19 20:24 Vomiting hydrocodone [From Vicodin] AdvReac Nausea & Verified 09/25/19 20:24 Vomiting Physical Exam Vitals: Vital Signs Temp Pulse Pulse Pulse Resp BP BP 09/26/19 06:54 97.7 F 77 18 09/26/19 04:00 97.7 F 78 18 138/73 09/26/19 00:00 97.7 F 87 17 141/92 09/25/19 20:00 97.0 F L 91 18 159/76 09/25/19 19:08 87 18 154/80 09/25/19 17:44 98.4 F 115 H 20 163/95 BP Pulse Ox 09/26/19 06:54 152/86 96 09/26/19 04:00 95 09/26/19 00:00 96 09/25/19 20:00 94 L 09/25/19 19:08 96 09/25/19 17:44 99 Intake and Output 09/25/19 09/26/19 09/26/19 22:59 06:59 14:59 Intake Total 60.01 Balance 60.01 Intake: Intake, IV Titration 60.01 Amount Heparin Sod,Pork in 0.45% 60.01 NaCl 25,000 unit In 0.45 % NaCl 1 250ml.bag @ 9.2 UNITS/KG/HR 9.974 mls/hr IV .Q24H [facility] Rx#: [id number] Other: Voiding Method Toilet Toilet # Voids 1 Weight 108.409 kg Results 09/25/19 17:55 09/25/19 17:55 Cardiac Enzymes 09/25/19 09/25/19 09/26/19 Range/Units 17:55 17:55 00:22 AST 45 H (14-36) U/L Troponin I <0.012 <0.012 (0.000-0.034) ng/mL Coagulation 09/25/19 09/26/19 Range/Units 17:55 00:22 PT 9.6 (9.0-12.0) sec APTT 23.2 29.8 (22.0-30.0) sec CBC 09/25/19 Range/Units 17:55 WBC 12.4 H (3.8-10.6) k/uL RBC 4.75 (3.80-5.40) m/uL Hgb 14.0 (11.4-16.0) gm/dL Hct 42.0 (34.0-46.0) % Plt Count 372 (150-450) k/uL Comprehensive Metabolic Panel 09/25/19 Range/Units 17:55 Sodium 137 (137-145) mmol/L Potassium 3.9 (3.5-5.1) mmol/L Chloride 103 (98-107) mmol/L Carbon Dioxide 22 (22-30) mmol/L BUN 9 (7-17) mg/dL Creatinine 0.45 L (0.52-1.04) mg/dL Glucose 183 H (74-99) mg/dL Calcium 9.6 (8.4-10.2) mg/dL AST 45 H (14-36) U/L ALT 40 (9-52) U/L Alkaline Phosphatase 71 (38-126) U/L Total Protein 7.6 (6.3-8.2) g/dL Albumin 4.4 (3.5-5.0) g/dL Current Medications Generic Name Dose Route Start Last Admin Trade Name Freq PRN Reason Stop Dose Admin Albuterol Sulfate 2.5 mg 09/25/19 19:20 Ventolin Nebulized INHALATION RT-Q6H PRN Dyspnea Atorvastatin Calcium 20 mg 09/25/19 21:00 09/25/19 21:09 Lipitor PO 20 mg HS STAN Administration Cholecalciferol 4,000 unit 09/26/19 09:00 Vitamin D3 (25 Mcg = 1000 Iu) PO DAILY STAN Cyanocobalamin 1,000 mcg 09/26/19 09:00 Vitamin B-12 PO DAILY STAN Cyclobenzaprine HCl 10 mg 09/25/19 21:00 09/25/19 21:09 Flexeril PO 10 mg HS STAN Administration Diphenhydramine HCl 50 mg 09/25/19 19:20 Benadryl PO QID PRN allergic symptoms Duloxetine HCl 60 mg 09/26/19 09:00 Cymbalta PO DAILY [facility] Gabapentin 600 mg 09/25/19 22:00 09/25/19 21:09 Neurontin PO 600 mg TID STAN Administration Heparin Sodium (Porcine) 0 unit 09/25/19 19:58 09/26/19 01:43 Heparin IV 4,000 unit PER PROTOCOL PRN Administration Low PTT Protocol Sodium Chloride 1,000 mls @ 20 mls/hr 09/25/19 19:30 09/25/19 19:37 Saline 0.9% IV 20 mls/hr .Q24H [facility] Administration Heparin Sodium/Sodium Chloride 250 mls @ 9.974 mls/hr 09/25/19 19:30 09/26/19 01:35 25,000 unit/ Sodium Chloride IV 12.2 units/kg/hr .Q24H [facility] 13.226 mls/hr Titration Protocol 9.2 UNITS/KG/HR Ibuprofen 800 mg 09/25/19 19:20 09/26/19 06:38 Motrin PO 800 mg Q6HR PRN Administration Pain Levothyroxine Sodium 25 mcg 09/26/19 06:30 09/26/19 06:38 Synthroid PO 25 mcg DAILY@0630 [facility] Administration Linagliptin 5 mg 09/26/19 09:00 Tradjenta PO DAILY [facility] Losartan Potassium 100 mg 09/26/19 09:00 Cozaar PO DAILY [facility] Metformin HCl 1,000 mg 09/25/19 21:00 09/25/19 21:09 Glucophage PO 1,000 mg BID [facility] Administration Nitroglycerin 0.4 mg 09/25/19 19:18 Nitrostat SUBLINGUAL Q5M PRN Chest Pain Nitroglycerin 1 inch 09/26/19 00:00 09/26/19 06:38 Nitro-Bid Oint TOPICAL 1 inch Q6HR [facility] Administration Prednisone 50 mg 09/26/19 09:00 PO DAILY [facility] Senna/Docusate Sodium 2 each 09/25/19 19:20 Senokot-S PO DAILY PRN Constipation Intake and Output 09/25/19 09/26/19 09/26/19 22:59 06:59 14:59 Intake Total 60.01 Balance 60.01 Intake: Intake, IV Titration 60.01 Amount Heparin Sod,Pork in 0.45% 60.01 NaCl 25,000 unit In 0.45 % NaCl 1 250ml.bag @ 9.2 UNITS/KG/HR 9.974 mls/hr IV .Q24H [facility] Rx#: [id number] Other: Voiding Method Toilet Toilet # Voids 1 Weight 108.409 kg 09/25/19 17:55 09/25/19 17:55
[2019-09-26 11:47] LABS: Glucose,Whole Blood 147 mg/dL (75-99)
--- NOTE | 2019-09-26 11:53 | ECHOS ---
STRESS ECHOCARDIOGRAM DATE OF SERVICE: 09/26/2019 INDICATIONS: Chest pain. MEDICATIONS: BASELINE HEART RATE: 80 BASELINE BLOOD PRESSURE: 177/99 MAXIMUM HEART RATE: 159 MAXIMUM BLOOD PRESSURE: 214/71 85% MPHR: 141 100% MPHR: 166 METS: MAXIMUM STAGE REACHED: TOTAL EXERCISE TIME: CLINICAL INFORMATION: This is a dobutamine stress echo. History of chest pain, midsternal chest discomfort and past history of CAD. Baseline heart rate 80 beats per minute. Baseline blood pressure 177/99 mmHg. Baseline 12-lead ECG shows normal sinus rhythm, normal cardiac intervals, normal ST segments. Patient received dobutamine infusion per protocol. Peak heart rate 139 beats per minute. Hypertensive response noted to 214/71 mmHg peak blood pressure. There was no ECG evidence for ischemia. No arrhythmias noted. Baseline 2D echo showed normal LV size and systolic function without segmental wall motion abnormalities. With dobutamine, there was a stepwise increment in overall LV contractility without development of any wall motion abnormalities. At recovery, regional global LV systolic function remained normal. IMPRESSION: No ECG or echocardiographic evidence for ischemia. MMODL / IJN: [id number] /
[2019-09-26] MEDS: GABAPENTIN 300 MG CAP PO SCH ×3 (11:55→19:42)
[2019-09-26] MEDS: CYANOCOBALAMIN 500 MCG TAB PO SCH (11:55)
[2019-09-26] MEDS: LOSARTAN 50 MG TAB PO SCH (11:55)
[2019-09-26] MEDS: predniSONE 50 MG TAB PO SCH (11:55)
[2019-09-26] MEDS: metFORMIN 500 MG TAB PO SCH ×2 (11:55→19:42)
[2019-09-26] MEDS: ASPIRIN 81 MG PO SCH (11:56)
[2019-09-26] MEDS: LINAGLIPTIN 5 MG TABLET PO SCH (11:56)
[2019-09-26] MEDS: DULoxetine HCL 60 MG CAPSULE.DR PO SCH (11:56)
[2019-09-26] MEDS: CHOLECALCIFEROL 1,000 UNIT TAB PO SCH (11:56)
[2019-09-26 16:33] LABS: Glucose,Whole Blood 178 mg/dL (75-99)
--- NOTE | 2019-09-26 18:30 | US ---
EXAMINATION TYPE: US gallbladder DATE OF EXAM: 09/26/2019 COMPARISON: NONE CLINICAL HISTORY: r/o duct blockage, elevated pancreatic enzymes per patient; midline chest pain radi ating up to left shoulder, nausea; pancreatitis and diabetic per patient; Gallbladder removed EXAM MEASUREMENTS: Liver Length: 21.9 cm Gallbladder Wall: surgically absent CBD: 0.5 cm Right Kidney: 13.6 x 6.8 x 4.6 cm Pancreas: hyperechoic, tail obscured by overlying bowel gas; prominent pancreatic duct = 0.4cm (abno rmal duct size as is greater than 0.2cm) Liver: enlarged, hyperechoic to right renal cortex suggests fatty liver Gallbladder: surgically absent Evidence for sonographic De Leon's sign: tender at epigastric area CBD: wnl Right Kidney: No hydronephrosis or masses seen; large for size (normal = 9 to 12 cm). IMPRESSION: Cholecystectomy. Hyperechoic liver suggestive of fatty infiltration. Pancreatic duct uppe r limit of normal size and measures 4 mm. Bile ducts are not dilated.
[2019-09-26] MEDS: SODIUM CHLORIDE 0.9% 1,000 ML IV SCH (19:19)
[2019-09-26] MEDS ORDERED: MORPHINE SULFATE 2 MG/ML SYRINGE IVP STA (19:22)
[2019-09-26] MEDS: CYCLOBENZAPRINE 10 MG TAB PO SCH (19:42)
[2019-09-26] MEDS: METOPROLOL TARTRATE 25 MG TAB PO SCH (19:42)
[2019-09-26] MEDS: ATORVASTATIN 20 MG TAB PO SCH (19:42)
[2019-09-26 19:51] LABS: Glucose,Whole Blood 227 mg/dL (75-99)
--- NOTE | 2019-09-27 00:23 | P.HPIM ---
History of Present Illness H&P Date: 09/26/19 Chief Complaint: Chest pain Patient is a 53-year-old female with known history of diabetes type 2 insulin- dependent, fibromyalgia, hypertension, hyperlipidemia, coronary artery disease with history of stent placement, depression and hypothyroidism came to ER with complaints of chest pain and abdominal pain. Patient is having pain mainly in the upper abdomen radiating up towards the left side of his chest. Pressure like tightness and radiated to the left shoulder. Erosive with shortness of breath and nausea and diaphoresis. Patient was at work when her symptoms star srinivasa. EMS was called and patient was brought to the hospital. Sublingual nitroglycerin given by EMS could not relieve pain. Lipase level 510 WBC 12.4, d-dimer not elevated Troponin 3 negative Chest x-ray showed no acute cardiopulmonary process. Slightly elevated AST level at 45. Bilirubin level not elevated. Patient does have a history of cholecystectomy. EKG showed sinus tachycardia with poor R-wave progression. Review of Systems Constitutional: Patient denies any fever or chills . No generalized weakness or weight loss. Abdomen: Upper abdominal pain and nausea. No diarrhea.. Cardiovascular: Patient does have lower anterior chest pain and short of breath no palpitations. Respiratory: patient denied any cough is from production. No shortness of breath Neurologic: Patient denied any numbness or tingling headache. Musculoskeletal: Patient denies any complaints of joint swelling or deformity. Skin: Negative Psychiatric: Negative Endocrine: No heat or cold intolerance. No recent weight gain. Genitourinary: No dysuria or hematuria. All other 14 point ROS negative except the above Past Medical History Past Medical History: Asthma, Diabetes Mellitus, Fibromyalgia, Hyperlipidemia, Hypertension, Myocardial Infarction (NV), Osteoarthritis (OA), Sleep Apnea/CPAP/BIPAP, Thyroid Disorder Additional Past Medical History / Comment(s): uses CPAP, hypothyroid Last Myocardial Infarction Date:: 2007 History of Any Multi-Drug Resistant Organisms: None Reported Past Surgical History: Appendectomy, Cholecystectomy, Heart Catheterization With Stent, Hysterectomy, Orthopedic Surgery Additional Past Surgical History / Comment(s): joseph. heel spurs, arthroscopy kne es, growth removed from throat Past Anesthesia/Blood Transfusion Reactions: No Reported Reaction Date of Last Stent Placement:: 2007 Past Psychological History: Depression Additional Psychological History / Comment(s): depression well controlled on current medications Smoking Status: Former smoker Past Alcohol Use History: None Reported Additional Past Alcohol Use History / Comment(s): quit smoking 01-09-07, smoked up to 3ppd for 25 yrs. Past Drug Use History: None Reported - Past Family History Sister(s) Family Medical History: Deep Vein Thrombosis (DVT) Father Family Medical History: Cancer Medications and Allergies Home Medications Medication Instructions Recorded Confirmed Type Aspirin 81 mg PO DAILY@1000 03/16/17 09/25/19 History Cholecalciferol [Vitamin D3] 4,000 unit PO DAILY@1000 03/16/17 09/25/19 History Cyclobenzaprine [Flexeril] 10 mg PO HS@0000 03/16/17 09/25/19 History DULoxetine HCL [Cymbalta] 60 mg PO DAILY@1000 03/16/17 09/25/19 History Gabapentin [Neurontin] 600 mg PO TID PRN 03/16/17 09/25/19 History Levothyroxine Sodium [Synthroid] 25 mcg PO DAILY@1000 03/16/17 09/25/19 History Losartan Potassium [Cozaar] 100 mg PO DAILY@1000 03/16/17 09/25/19 History Simvastatin [Zocor] 40 mg PO HS@0000 03/16/17 09/25/19 History metFORMIN HCL [Glucophage] 1,000 mg PO BID@1000,0000 03/16/17 09/25/19 History Cyanocobalamin (Vitamin B-12) 1,000 mcg PO DAILY@1000 01/06/19 09/25/19 History [Vitamin B-12] EPINEPHrine [Epipen 2-Werner] 0.3 mg IM ONCE PRN #1 pack 01/06/19 09/25/19 Rx sitaGLIPtin [Januvia] 100 mg PO DAILY@1000 01/06/19 09/25/19 History Albuterol Sulfate [Ventolin HFA] 1 - 2 puff INHALATION RT-QID PRN 09/25/19 09/25/19 History Ibuprofen [Motrin] 800 mg PO TID PRN 09/25/19 09/25/19 History Sertraline [Zoloft] 50 mg PO DAILY@1000 09/25/19 09/25/19 History Allergies Allergy/AdvReac Type Severity Reaction Status Date / Time amoxicillin Allergy Anaphylaxis Verified 09/25/19 20:24 azithromycin Allergy Anaphylaxis Verified 09/25/19 20:24 famciclovir [From Famvir] Allergy Unknown Verified 09/25/19 20:24 niacin Allergy Rash/Hives Verified 09/25/19 20:24 [From Niaspan Extended-Release] prochlorperazine Allergy tardive Verified 09/25/19 20:24 [From Compazine] dyskinesia valacyclovir [From Valtrex] Allergy Unknown Verified 09/25/19 20:24 acetaminophen [From Vicodin] AdvReac Nausea & Verified 09/25/19 20:24 Vomiting hydrocodone [From Vicodin] AdvReac Nausea & Verified 09/25/19 20:24 Vomiting Physical Exam Vitals: Vital Signs Temp Pulse Pulse Pulse Resp BP BP 09/26/19 06:54 97.7 F 77 18 09/26/19 04:00 97.7 F 78 18 138/73 09/26/19 00:00 97.7 F 87 17 141/92 09/25/19 20:00 97.0 F L 91 18 159/76 09/25/19 19:08 87 18 154/80 09/25/19 17:44 98.4 F 115 H 20 163/95 BP Pulse Ox 09/26/19 06:54 152/86 96 09/26/19 04:00 95 09/26/19 00:00 96 09/25/19 20:00 94 L 09/25/19 19:08 96 09/25/19 17:44 99 Intake and Output 09/25/19 09/26/19 09/26/19 22:59 06:59 14:59 Intake Total 60.01 Balance 60.01 Intake: Intake, IV Titration 60.01 Amount Heparin Sod,Pork in 0.45% 60.01 NaCl 25,000 unit In 0.45 % NaCl 1 250ml.bag @ 9.2 UNITS/KG/HR 9.974 mls/hr IV .Q24H [facility] Rx#: [id number] Other: Voiding Method Toilet Toilet Toilet # Voids 1 Weight 108.409 kg PHYSICAL EXAMINATION: Patient is lying in the bed comfortably, no acute distress, awake alert and oriented.. HEENT: Normocephalic. Neck is supple. Pupils reactive. Nostrils clear. Oral cavity is moist. Ears reveal no drainage. Neck reveals no JVD, carotid bruits, or thyromegaly. CHEST EXAMINATION: Trachea is central. Symmetrical expansion. Lung tavarez clear to auscultation and percussion. CARDIAC: Normal S1, S2 with no gallops. No murmurs ABDOMEN: Soft. Mild epigastric tenderness. Bowel sounds normal. No organomegaly. No abdominal bruits. Extremities: reveal no edema. No clubbing or cyanosis Neurologically awake, alert, oriented x3 with well-coordinated movements. No focal deficits noted Skin: No rash or skin lesions. Psychiatric: Coperative. Nonsuicidal Musculoskeletal: No joint swelling or deformity. Normal range of motion. Results CBC & Chem 7: 09/25/19 17:55 09/25/19 17:55 Labs: Abnormal Lab Results - Last 24 Hours (Table) 09/25/19 09/25/19 09/25/19 Range/Units 17:55 17:55 20:19 WBC 12.4 H (3.8-10.6) k/uL APTT (22.0-30.0) sec Creatinine 0.45 L (0.52-1.04) mg/dL Glucose 183 H (74-99) mg/dL POC Glucose (mg/dL) 126 H (75-99) mg/dL AST 45 H (14-36) U/L Triglycerides (<150) mg/dL HDL Cholesterol (40-60) mg/dL Lipase 510 H (23-300) U/L 09/26/19 09/26/19 09/26/19 Range/Units 06:42 07:50 07:50 WBC (3.8-10.6) k/uL APTT 45.4 H (22.0-30.0) sec Creatinine (0.52-1.04) mg/dL Glucose (74-99) mg/dL POC Glucose (mg/dL) 145 H (75-99) mg/dL AST (14-36) U/L Triglycerides 226 H (<150) mg/dL HDL Cholesterol 32 L (40-60) mg/dL Lipase (23-300) U/L Thrombosis Risk Factor Assmnt - DVT/VTE Prophylaxis DVT/VTE Prophylaxis: Pharmacologic Prophylaxis ordered - Choose All That Apply Any of the Below Risk Factors Present?: Yes Each Factor Represents 1 point: Age 41-60 years, Obesity (BMI >25) Other Risk Factors: Yes Each Risk Factor Represents 3 Points: Family history of DVT/PE Other congenital or acquired thrombophilia - If yes, enter type in comment: No Thrombosis Risk Factor Assessment Total Risk Factor Score: 5 Thrombosis Risk Factor Assessment Level: High Risk Assessment and Plan Assessment: Atypical chest pain. Ruled out ACS. Mild pancreatitis with elevated lipase level 510. Patient does have a history of cholecystectomy. Coronary artery disease with history of stent placement History of [place] Hypertension Diabetes type 2 Hyperlipidemia and mild hypertriglyceridemia Morbid obesity BMI 38.6 Osteoarthritis Obstructive sleep apnea Hypothyroidism Asthma. Stable now Previous history of smoking and depression DVT prophylaxis Plan: Patient will be continued on telemetry monitoring. Serial troponins negative. D-dimer is not elevated. Patient was seen by cardiology and recommended dobutamine stress echocardiogram. Patient does have mild pancreatitis with elevated lipase level and epigastric abdominal pain sometimes radiating to the back. Continue the clear liquid diet. Ultrasound of the abdomen was ordered to rule out ductal enlargement. Liver enzymes and bilirubin level are not elevated. Continue to follow closely. Continue with statins and better blood sugar control. Further recommendations based on the clinical course. Time with Patient: Greater than 30
[2019-09-27 05:41] LABS: Basophils # (A) 0.1 k/uL (0-0.2); Basophils % (A) 1 %; Eosinophils # (A) 0.1 k/uL (0-0.7); Eosinophils % (A) 1 %; HCT 39.3 % (34.0-46.0); HGB 12.9 gm/dL (11.4-16.0); Lymphocytes # (A) 4.7 k/uL (1.0-4.8); Lymphocytes % (A) 32 %; MCHC 32.8 g/dL (31.0-37.0); MCV 88.4 fL (80.0-100.0); Mean Platelet Volume 6.1; Monocytes # (A) 0.7 k/uL (0-1.0); Monocytes % (A) 5 %; Neutrophils # (A) 8.6 k/uL (1.3-7.7); Neutrophils % (A) 60 %; Platelet Count 350 k/uL (150-450); RBC 4.45 m/uL (3.80-5.40); RDW 12.4 % (11.5-15.5); WBC 14.5 k/uL (3.8-10.6)
[2019-09-27 06:03] LABS: ALT 39 U/L (9-52); AST 31 U/L (14-36); African American GFR (CKD) >90 (>60 ml/min/1.73 sqM); Albumin 3.9 g/dL (3.5-5.0); Alkaline Phosphatase 56 U/L (38-126); Anion Gap 9 mmol/L; Blood Urea Nitrogen 9 mg/dL (7-17); Calcium 9.5 mg/dL (8.4-10.2); Carbon Dioxide 25 mmol/L (22-30); Chloride 103 mmol/L (98-107); Glucose 142 mg/dL (74-99); Non-African American GFR(CKD) >90 (>60 ml/min/1.73 sqM); Potassium 4.3 mmol/L (3.5-5.1); Sodium 137 mmol/L (137-145); Total Bilirubin 0.5 mg/dL (0.2-1.3)
[2019-09-27] MEDS: LEVOTHYROXINE 25 MCG TAB PO SCH (06:06)
[2019-09-27 06:42] LABS: Glucose,Whole Blood 141 mg/dL (75-99)
[2019-09-27] MEDS: CHOLECALCIFEROL 1,000 UNIT TAB PO SCH (08:19)
[2019-09-27] MEDS: DULoxetine HCL 60 MG CAPSULE.DR PO SCH (08:25)
[2019-09-27] MEDS: ASPIRIN 81 MG PO SCH (08:25)
[2019-09-27] MEDS: metFORMIN 500 MG TAB PO SCH (08:25)
[2019-09-27] MEDS: predniSONE 50 MG TAB PO SCH (08:25)
[2019-09-27] MEDS: LINAGLIPTIN 5 MG TABLET PO SCH (08:25)
[2019-09-27] MEDS: METOPROLOL TARTRATE 25 MG TAB PO SCH (08:25)
[2019-09-27] MEDS: GABAPENTIN 300 MG CAP PO SCH (08:25)
[2019-09-27] MEDS: LOSARTAN 50 MG TAB PO SCH (08:25)
[2019-09-27] MEDS: CYANOCOBALAMIN 500 MCG TAB PO SCH (08:26)
[2019-09-27] MEDS ORDERED: PANTOPRAZOLE 40 MG TABLET PO SCH (08:30)
--- NOTE | 2019-09-27 10:25 | CONS ---
CONSULTATION DATE OF DICTATION: September 27, 2019. REQUESTING PHYSICIAN: Dr. Gus Joseph. REASON FOR CONSULTATION: Chest pain and epigastric pain. HISTORY OF PRESENTING ILLNESS: The patient is a 53-year-old pleasant white female with history of diabetes mellitus, hypertension, hyperlipidemia, and coronary artery disease with stent placement in the past, admitted to the hospital with acute onset of severe chest pain and abdominal pain that got worse 2 days ago. The patient has been having some epigastric pain on and off for the last 1 month duration, radiates to her left shoulder area that lasts for half an hour to 1 hour and resolves. This has been going on for the last 1 month duration. However, 2 days ago, the pain got much intense and hence came to the emergency room. She had cardiac workup done, cardiac enzymes, EKG and stress test were all negative. She was noted to have mild elevation of lipase and hence we are consulted for possible acute pancreatitis. The patient never had these symptoms in the past. She had gallbladder surgery for gallbladder sludge about 10 years ago. This morning, she is feeling better. She still has some pain mostly localized to the epigastric and right upper quadrant area. She denies any nausea, vomiting. On a full liquid diet, tolerating well. She had ultrasound of the right upper quadrant done that showed no biliary ductal dilation. There was slight dilation of the pancreatic duct noted. There was evidence of fatty liver. PAST MEDICAL HISTORY: Significant for hypertension, hyperlipidemia, coronary artery disease, status post stents in the past, fibromyalgia, diabetes mellitus and sleep apnea. PAST SURGICAL HISTORY: Cholecystectomy, appendectomy, cardiac cath with stent placement, hysterectomy, arthroscopy of both the knees. MEDICATIONS: At home include Flexeril, aspirin, Cymbalta, Neurontin, Synthroid, Cozaar, Zocor, Glucophage, vitamin B12, Januvia, albuterol, Motrin, Zoloft. ALLERGIES: ZITHROMAX, AMOXICILLIN, COMPAZINE, VALTREX, VICODIN. SOCIAL HISTORY: No smoking. No alcohol use. FAMILY HISTORY: Sister had DVT. Father had some kind of cancer. REVIEW OF SYSTEMS: CARDIOPULMONARY: No chest pain, shortness of breath. no dysuria hematuria. MUSCULOSKELETAL unremarkable. SKIN unremarkable. Endocrine unremarkable. Psychiatric unremarkable. Neurology unremarkable. ENT/vision unremarkable. CONSTITUTIONAL: No recent weight loss. No fever, chills, night sweats endocrine unremarkable. HEMATOLOGY unremarkable. PHYSICAL EXAMINATION: She appears comfortable. No apparent distress. VITAL SIGNS: Stable. Blood pressure is 166/94, pulse rate 102, temperature 97.5. HEENT examination unremarkable. Conjunctivae pink. Sclerae anicteric. Oral cavity no lesions. NECK: No JVD or lymph node enlargement. The chest was clear to auscultation. HEART: Regular rate and rhythm. ABDOMEN: Soft. There was mild tenderness in the epigastric and right upper quadrant area. Bowel sounds are positive. No organomegaly. EXTREMITIES: No pedal edema. SKIN no rashes. NEUROLOGIC: Alert and oriented x3. No focal deficits. LABS: WBC 12.4, hemoglobin 14, platelets normal. Basic metabolic panel is within normal limits. ALT, AST, bilirubin and alkaline phosphatase are normal. Lipase 510. Today, WBC 14.5, hemoglobin 12.9, platelets are normal. IMPRESSION: 1. Epigastric pain, atypical chest pain on and off for the last 1 month duration, but much worsening symptoms for the last 2 days. She was admitted to hospital 2 days ago. Cardiac workup was negative. Lipase was slightly elevated at 510. Possible mild acute pancreatitis, but possibility of peptic ulcer disease cannot be entirely excluded. The patient has been taking Motrin 800 mg 3 times daily as needed for the last few months for osteoarthritis. She has history of gastric bypass surgery 10 years ago. RECOMMENDATIONS: 1. Protonix 40 mg q.12 hours. 2. Advance diet as tolerated. 3. No plans for any endoscopy intervention at the present time. 4. If her symptoms are better, she can be discharged home with an outpatient followup in 2 weeks. Thank you for this consultation. MMODL / REBECAN: [id number] /
[2019-09-27] MEDS: IBUPROFEN 800 MG TAB PO PRN (11:09)
[2019-09-27 11:31] LABS: Glucose,Whole Blood 140 mg/dL (75-99)
[2019-09-27 12:12] VITALS: BP 148/87; PULSE 69; TEMP 97.7
--- NOTE | 2019-10-02 21:35 | P.DS ---
Providers Date of admission: 09/25/19 19:30 Expected date of discharge: 09/27/19 Attending physician: Clair Villalpando MD Consults: 09/25/19 19:18 Consult Physician Urgent Consulting Provider: Tenzin Santos Consult Reason/Comments: Atypical chest pain Do you want consulting provider notified?: Yes 09/27/19 00:23 Consult Physician Routine Consulting Provider: Pat Santos Consult Reason/Comments: Acute pancreatitis Do you want consulting provider notified?: Yes, Notify in am Primary care physician: Gus Joseph MD Hospital Course: Discharge diagnosis Atypical chest pain. Ruled out ACS. Mild pancreatitis with elevated lipase level 510. Patient does have a history of cholecystectomy. Coronary artery disease with history of stent placement History of [place] Hypertension Diabetes type 2 Hyperlipidemia and mild hypertriglyceridemia Morbid obesity BMI 38.6 Osteoarthritis Obstructive sleep apnea Hypothyroidism Asthma. Stable now Previous history of smoking and depression DVT prophylaxis Hospital course Patient is a 53-year-old female with known history of diabetes type 2 insulin- dependent, fibromyalgia, hypertension, hyperlipidemia, coronary artery disease with history of stent placement, depression and hypothyroidism came to ER with complaints of chest pain and abdominal pain. Patient is having pain mainly in the upper abdomen radiating up towards the left side of his chest. Pressure like tightness and radiated to the left shoulder. Erosive with shortness of breath and nausea and diaphoresis. Patient was at work when her symptoms started. EMS was called and patient was brought to the hospital. Sublingual nitroglycerin given by EMS could not relieve pain. Lipase level 510 WBC 12.4, d-dimer not elevated Troponin 3 negative Chest x-ray showed no acute cardiopulmonary process. Slightly elevated AST level at 45. Bilirubin level not elevated. Patient does have a history of cholecystectomy. EKG showed sinus tachycardia with poor R-wave progression. Patient was continued on telemetry monitoring. Serial troponins negative. D- dimer is not elevated. Patient was seen by cardiology and recommended dobutamine stress echocardiogram. Stress echocardiogram is negative. Patient does have mild pancreatitis with elevated lipase level and epigastric abdominal pain sometimes radiating to the back. Continued the clear liquid diet. Ultrasound of the abdomen was ordered to rule out ductal enlargement. Liver enzymes and bilirubin level are not elevated. Continued with statins and better blood sugar control. Due to mild pancreatic ductal enlargement, patient was seen by gastroenterology and recommends follow-up in the clinic. Currently patient is tolerating oral diet. Abdominal pain resolved now. Patient is being discharged home today. PHYSICAL EXAMINATION: Patient is lying in the bed comfortably, no acute distress, awake alert and oriented.. HEENT: Normocephalic. Neck is supple. Pupils reactive. Nostrils clear. Oral cavity is moist. Ears reveal no drainage. Neck reveals no JVD, carotid bruits, or thyromegaly. CHEST EXAMINATION: Trachea is central. Symmetrical expansion. Lung tavarez clear to auscultation and percussion. CARDIAC: Normal S1, S2 with no gallops. No murmurs ABDOMEN: Soft. Bowel sounds normal. No organomegaly. No abdominal bruits. Extremities: reveal no edema. No clubbing or cyanosis Neurologically awake, alert, oriented x3 with well-coordinated movements. No focal deficits noted Skin: No rash or skin lesions. Psychiatric: Coperative. Nonsuicidal Musculoskeletal: No joint swelling or deformity. Normal range of motion. Discharge vitals reviewed. Patient Condition at Discharge: Fair Plan - Discharge Summary Discharge Rx Participant: No New Discharge Prescriptions: New Pantoprazole [Protonix] 40 mg PO AC-BID #60 tablet.dr Continue Simvastatin [Zocor] 40 mg PO HS@0000 Levothyroxine Sodium [Synthroid] 25 mcg PO DAILY@1000 Cholecalciferol [Vitamin D3 (25 Mcg = 1000 Iu)] 4,000 unit PO DAILY@1000 metFORMIN HCL [Glucophage] 1,000 mg PO BID@1000,0000 Losartan Potassium [Cozaar] 100 mg PO DAILY@1000 Gabapentin [Neurontin] 600 mg PO TID PRN PRN Reason: Pain DULoxetine HCL [Cymbalta] 60 mg PO DAILY@1000 Cyclobenzaprine [Flexeril] 10 mg PO HS@0000 Aspirin 81 mg PO DAILY@1000 EPINEPHrine [Epipen 2-Werner] 0.3 mg IM ONCE PRN #1 pack PRN Reason: Anaphylaxis sitaGLIPtin [Januvia] 100 mg PO DAILY@1000 Cyanocobalamin (Vitamin B-12) [Vitamin B-12] 1,000 mcg PO DAILY@1000 Albuterol Sulfate [Ventolin HFA] 1 - 2 puff INHALATION RT-QID PRN PRN Reason: Shortness Of Breath Sertraline [Zoloft] 50 mg PO DAILY@1000 Discontinued Ibuprofen [Motrin] 800 mg PO TID PRN PRN Reason: Pain Discharge Medication List Aspirin 81 mg PO DAILY@1000 03/16/17 [History] Cholecalciferol [Vitamin D3 (25 Mcg = 1000 Iu)] 4,000 unit PO DAILY@1000 03/16/17 [History] Cyclobenzaprine [Flexeril] 10 mg PO HS@0000 03/16/17 [History] DULoxetine HCL [Cymbalta] 60 mg PO DAILY@1000 03/16/17 [History] Gabapentin [Neurontin] 600 mg PO TID PRN 03/16/17 [History] Levothyroxine Sodium [Synthroid] 25 mcg PO DAILY@1000 03/16/17 [History] Losartan Potassium [Cozaar] 100 mg PO DAILY@1000 03/16/17 [History] Simvastatin [Zocor] 40 mg PO HS@03/16/17 [History] metFORMIN HCL [Glucophage] 1,000 mg PO BID@1000,03/16/17 [History] Cyanocobalamin (Vitamin B-12) [Vitamin B-12] 1,000 mcg PO DAILY@99901/06/19 [History] EPINEPHrine [Epipen 2-Werner] 0.3 mg IM ONCE PRN #1 pack 01/06/19 [Rx] sitaGLIPtin [Januvia] 100 mg PO DAILY@1000 01/06/19 [History] Albuterol Sulfate [Ventolin HFA] 1 - 2 puff INHALATION RT-QID PRN 09/25/19 [History] Sertraline [Zoloft] 50 mg PO DAILY@1000 09/25/19 [History] Pantoprazole [Protonix] 40 mg PO AC-BID #60 tablet. 09/27/19 [Rx] Follow up Appointment(s)/Referral(s): Gus Joseph MD [Primary Care Provider] - 1-2 days Pat Santos MD [STAFF PHYSICIAN] - 2 Weeks Kesha Sherwood MD [STAFF PHYSICIAN] - 2 Weeks Discharge Disposition: HOME SELF-CARE
== END 2019-09-27 12:40 | disposition home or self-care (01) ==
LOC: EC 17:42 → 1SOBS 19:30
PROVIDERS: ADMIT Internal Medicine; ATTEND Internal Medicine
DX: R07.89 Other chest pain (principal); R07.1 Chest pain on breathing; M79.7 Fibromyalgia; R06.02 Shortness of breath; R61 Generalized hyperhidrosis; K85.90 Acute pancreatitis without necrosis or infection, unspecified; Z90.49 Acquired absence of other specified parts of digestive tract; I25.10 Atherosclerotic heart disease of native coronary artery without angina pectoris; Z95.5 Presence of coronary angioplasty implant and graft; I25.2 Old myocardial infarction; E11.9 Type 2 diabetes mellitus without complications; E78.5 Hyperlipidemia, unspecified; I10 Essential (primary) hypertension; E66.01 Morbid (severe) obesity due to excess calories; Z68.38 Body mass index [BMI] 38.0-38.9, adult; E78.1 Pure hyperglyceridemia; M19.90 Unspecified osteoarthritis, unspecified site; G47.33 Obstructive sleep apnea (adult) (pediatric); E03.9 Hypothyroidism, unspecified; J45.909 Unspecified asthma, uncomplicated; F32.9 Major depressive disorder, single episode, unspecified; K76.0 Fatty (change of) liver, not elsewhere classified; Z87.891 Personal history of nicotine dependence; Z99.89 Dependence on other enabling machines and devices; Z80.9 Family history of malignant neoplasm, unspecified; Z82.49 Family history of ischemic heart disease and other diseases of the circulatory system; Z79.82 Long term (current) use of aspirin; Z79.899 Other long term (current) drug therapy; Z79.890 Hormone replacement therapy; Z79.84 Long term (current) use of oral hypoglycemic drugs; Z79.1 Long term (current) use of non-steroidal anti-inflammatories (NSAID); Z88.1 Allergy status to other antibiotic agents; Z88.5 Allergy status to narcotic agent; Z88.0 Allergy status to penicillin; Z88.8 Allergy status to other drugs, medicaments and biological substances; Z98.84 Bariatric surgery status
CPT/HCPCS: 93005 ×2; 96366 ×2; 96375 ×2; 96376 ×2; 96365; 99285; 36415; 93306; 93351; 85379; 83880; 80061; 80053 ×2; 84443; 82550; 83690; 83735; 84484 ×2; 85025 ×2; 85610; 85730 ×2; 71046; 76705; G0378 ×3; J1250; J1644 ×3; J1885; J2270; J7512 ×2

== ENCOUNTER → 2020-04-13 | Outpatient (CLI) | payer BC | END | disposition home or self-care (01) | LOC: LABWHC1 11:56 | PROVIDERS: ATTEND Nurse Practitioner Adult Health | DX: I10 Essential (primary) hypertension (principal) | CPT/HCPCS: 36415; 82533; 83835 ==

== ENCOUNTER → 2020-06-24 | Outpatient (CLI) | payer BC ==
[2020-06-24 19:05] LABS: African American GFR (CKD) 118.9 (60.0-200.0); Anion Gap 8.2 mmol/L (4.00-12.00); BUN/Creat Ratio 18.33 Ratio (12.00-20.00); Carbon Dioxide 28.8 mmol/L (21.6-31.8); Chol/HDL Ratio 3.03; LDL Cholesterol,Calculated 40.8 mg/dL (0.0-131.0); Magnesium 1.6 mg/dL (1.5-2.4); Non-African American GFR(CKD) 102.6 (60.0-200.0); Potassium 4.8 mmol/L (3.5-5.5); VLDL Calculation 32.2 mg/dL (5.00-40.00)
== END | disposition home or self-care (01) ==
LOC: LABWHC1 12:09
PROVIDERS: ATTEND Physician Assistant
DX: I10 Essential (primary) hypertension (principal); E78.5 Hyperlipidemia, unspecified
CPT/HCPCS: 36415; 80048; 80061; 83735

== ENCOUNTER 2021-11-11 11:41 | Emergency (ER) | payer BC ==
[2021-11-11 13:33] VITALS: RESP 16
[2021-11-11] MEDS ORDERED: HYDROcodone/APAP 5-325MG 1 EACH TAB PO STA (15:48)
[2021-11-11] MEDS ORDERED: LIDOCAINE 5% PATCH TOPICAL STA (15:48)
[2021-11-11] MEDS ORDERED: KETOROLAC 15 MG/ML 1 ML VIAL IVP STA (15:48)
--- NOTE | 2021-11-11 15:51 | ED ---
General Adult HPI - General Chief complaint: Back Pain/Injury Stated complaint: back pain Time Seen by Provider: 11/11/21 15:17 Source: patient, RN notes reviewed, old records reviewed Mode of arrival: ambulatory Limitations: no limitations - History of Present Illness Initial comments: Patient is a 55-year-old female with chronic back pain with radiculopathy down bilateral legs presents emergency Department with acute on chronic back pain. She states she last received injections in her back 2 weeks ago and is due to return to the specialists next Sunday, however states that over the last 2-3 days the pain has been worse. She is on gabapentin at home. States her normal pain medication stenosing be helping. Is just seeking pain relief at this time. Denies any new trauma, sensory deficits or weakness. She is able to ambulate. Has no red flag symptoms including denying saddle anesthesias, urinary or bowel incontinence or retention. She has no other acute complaints at this time. Denies any history of IV drug use. - Related Data Home Medications Medication Instructions Recorded Confirmed Aspirin 81 mg PO DAILY@99903/16/17 09/25/19 Cholecalciferol [Vitamin D3 (25 4,000 unit PO DAILY@99903/16/17 09/25/19 Mcg = 1000 Iu)] Cyclobenzaprine [Flexeril] 10 mg PO HS@0000 03/16/17 09/25/19 DULoxetine HCL [Cymbalta] 60 mg PO DAILY@99903/16/17 09/25/19 Gabapentin [Neurontin] 600 mg PO TID PRN 03/16/17 09/25/19 Levothyroxine Sodium [Synthroid] 25 mcg PO DAILY@99903/16/17 09/25/19 Losartan Potassium [Cozaar] 100 mg PO DAILY@1000 03/16/17 09/25/19 Simvastatin [Zocor] 40 mg PO HS@0000 03/16/17 09/25/19 metFORMIN HCL [Glucophage] 1,000 mg PO BID@1000,0000 03/16/17 09/25/19 Cyanocobalamin (Vitamin B-12) 1,000 mcg PO DAILY@1000 01/06/19 09/25/19 [Vitamin B-12] sitaGLIPtin [Januvia] 100 mg PO DAILY@1000 01/06/19 09/25/19 Albuterol Sulfate [Ventolin HFA] 1 - 2 puff INHALATION RT-QID PRN 09/25/19 09/25/19 Sertraline [Zoloft] 50 mg PO DAILY@1000 09/25/19 09/25/19 Previous Rx's Medication Instructions Recorded EPINEPHrine [Epipen 2-Werner] 0.3 mg IM ONCE PRN #1 pack 01/06/19 Pantoprazole [Protonix] 40 mg PO AC-BID #60 tablet. 09/27/19 Lidocaine 5% Patch [Lidoderm 5% 1 patch TOPICAL DAILY PRN 7 Days 11/11/21 Patch] #7 patch Methocarbamol [Robaxin-750] 750 mg PO BID PRN 14 Days #28 11/11/21 tablet Allergies Allergy/AdvReac Type Severity Reaction Status Date / Time amoxicillin Allergy Anaphylaxis Verified 11/11/21 13:33 azithromycin Allergy Anaphylaxis Verified 11/11/21 13:33 famciclovir [From Famvir] Allergy Unknown Verified 11/11/21 13:33 niacin Allergy Rash/Hives Verified 11/11/21 13:33 [From Niaspan Extended-Release] prochlorperazine Allergy tardive Verified 11/11/21 13:33 [From Compazine] dyskinesia valacyclovir [From Valtrex] Allergy Unknown Verified 11/11/21 13:33 acetaminophen [From Vicodin] AdvReac Nausea & Verified 11/11/21 13:33 Vomiting hydrocodone [From Vicodin] AdvReac Nausea & Verified 11/11/21 13:33 Vomiting Review of Systems ROS Statement: Those systems with pertinent positive or pertinent negative responses have been documented in the HPI. Review of Systems: CONST: Denies fever EYES: Denies blurry vision ENT: Denies nasal congestion C/V: Denies Chest pain RESP: Denies shortness of breath GI: Denies abdominal pain : Denies dysuria SKIN: Denies rash. MSK: Endorses back pain NEURO: Denies headache ROS Other: All systems not noted in ROS Statement are negative. Past Medical History Past Medical History: Asthma, Diabetes Mellitus, Fibromyalgia, Hyperlipidemia, Hypertension, Myocardial Infarction ([place]), Osteoarthritis (OA), Sleep Apnea/CPAP/BIPAP, Thyroid Disorder Additional Past Medical History / Comment(s): uses CPAP, hypothyroid Last Myocardial Infarction Date:: 2007 History of Any Multi-Drug Resistant Organisms: None Reported Past Surgical History: Appendectomy, Cholecystectomy, Heart Catheterization With Stent, Hysterectomy, Orthopedic Surgery Additional Past Surgical History / Comment(s): joseph. heel spurs, arthroscopy knees, growth removed from throat Past Anesthesia/Blood Transfusion Reactions: No Reported Reaction Date of Last Stent Placement:: 2007 Past Psychological History: Depression Smoking Status: Former smoker Past Alcohol Use History: None Reported Past Drug Use History: None Reported - Past Family History Sister(s) Family Medical History: Deep Vein Thrombosis (DVT) Father Family Medical History: Cancer General Exam - General Exam Comments Initial Comments: General: Appears in mild distress secondary to pain in her back. HEAD: Normal with no signs of head trauma. EYES: PERRLA, EOMI, conjunctiva normal, no discharge. ENT: Hearing grossly intact, normal oropharynx. RESPIRATORY: Clear breath sounds bilaterally. No wheezes, rales, or rhonchi. C/V: Regular rate and rhythm. S1 and S2 auscultated, no edema, peripheral pulses 2+ and intact throughout ABD: Abd is soft, nontender, nondistended EXT: Normal range of motion, no obvious deformity. Patient's pelvis is stable. Patient does have chronic lumbar spine tenderness to palpation with radiculopathy down bilateral legs, today right worse than left. SKIN: No rashes or lesions observed on exposed skin. NEURO: Alert and oriented x 4. Cranial nerves II-XII intact. No focal sensory or strength deficits. Patient is able to ambulate. Limitations: no limitations Course Vital Signs 11/11/21 11/11/21 13:29 16:10 Temperature 98.2 F 98.7 F Pulse Rate 88 73 Respiratory 16 16 Rate Blood Pressure 147/80 152/89 O2 Sat by Pulse 98 96 Oximetry Medical Decision Making - Medical Decision Making Based on the patient's presentation and physical exam, she is having acute on chronic back pain this is her typical back pain that is just uncontrolled at this time. She is seeking pain relief until she can follow-up with her primary physician next week. He'll provide her with Tama as well as lidocaine patch here. She'll receive a prescription for Robaxin as well as lidocaine patches. She has Motrin at home. She'll also receive a Toradol shot here. Discussed that we will not be able to completely eliminate her pain but because to control it at this time and she was in agreement with the plan. All medications, patient will be discharged home. She was in agreement with this plan. I will provide the patient with a prescription for Robaxin, lidocaine patches. I instructed the patient to follow up with their PCP in the next 3 days. I explained that the patient should return to the emergency department if they experience any worsening symptoms. Strict return precautions were discussed with the patient. The patient expressed understanding of these instructions. I answered all questions that the patient had. The patient was discharged home in fair condition with their prescriptions and follow up information. Disposition Clinical Impression: Chronic back pain Disposition: HOME SELF-CARE Condition: Fair Instructions (If sedation given, give patient instructions): Chronic Back Pain (DC) Prescriptions: Lidocaine 5% Patch [Lidoderm 5% Patch] 1 patch TOPICAL DAILY PRN 7 Days #7 patch PRN Reason: Pain Methocarbamol [Robaxin-750] 750 mg PO BID PRN 14 Days #28 tablet PRN Reason: Pain Is patient prescribed a controlled substance at d/c from ED?: No Referrals: Gus Joseph MD [Primary Care Provider] - 1-2 days
[2021-11-11 16:12] VITALS: BP 152/89; PULSE 73; TEMP 98.7
== END 2021-11-11 16:09 | disposition home or self-care (01) ==
LOC: EC 11:41
DX: G89.29 Other chronic pain (principal); M54.50 Low back pain, unspecified; E11.9 Type 2 diabetes mellitus without complications; I10 Essential (primary) hypertension; I25.2 Old myocardial infarction; J45.909 Unspecified asthma, uncomplicated; E78.5 Hyperlipidemia, unspecified; M79.7 Fibromyalgia; M19.90 Unspecified osteoarthritis, unspecified site; E03.9 Hypothyroidism, unspecified; F32.A Depression, unspecified; Z87.891 Personal history of nicotine dependence; Z79.890 Hormone replacement therapy; Z79.84 Long term (current) use of oral hypoglycemic drugs; Z79.82 Long term (current) use of aspirin; Z79.51 Long term (current) use of inhaled steroids; Z79.899 Other long term (current) drug therapy
CPT/HCPCS: 99283; 96374; J1885

== ENCOUNTER → 2022-09-21 | Outpatient (CLI) | payer BC ==
[~2022-09-21] MED LIST changes: -DEXAMETHASONE SOD PHOSPHATE 10 MG/ML 1 ML VIAL IV ONE; -LACTATED RINGERS 1,000 ML IV SCH; -MIDAZOLAM 2 MG/2 ML VIAL IV PRN; -ONDANSETRON 4 MG/2 ML VIAL IVP ONE; -Pre Op ABX Message 1 EACH MISC MISCELLANE ONE; +REGADENOSON 0.4 MG/5 ML SYRINGE IV PRN
--- NOTE | 2022-09-21 11:47 | CA ---
Lexiscan Nuclear Stress Test Report Name: Eliana Thomas Exam Date: 09/21/2022 10:29 Exam Location: [facility] Stress Ht (in): 66 Wt (lb): 215 BSA: 2.06 Ordering Phys: Kyler Hare MD Referring Phys: Kenyetta Joseph Technologist: Kumar Castellanos Age: 56 Gender: F : 1965 Procedure CPT: Indications: I25.10 Z01.818 ICD-10 Codes: Patient History: HX OF ANGINA, HTN, DIABETIC, ELEVATED CHOLESTEROL LEVELS, FAMILY HX OF HEART DISEASE, FORMER SMOKER - QUIT 15 YEARS. PRIOR ME, PRIOR CATH WITH STENT, ASTHMA Medications: AMLODIPINE, METFORMIN, LEVOTHYROXINE, CYCLOBENAPRINE, TRIAMTERNE, ASA, CLARITIN, OMERPRAZOLE, ROSUVASTATIN, Meds past 24 hrs: Pretest Chest Pain: STRESS TEST Lexiscan Protocol Exercise Duration (min:sec): 01:[address] Depressions (mm): Angina Score: Howard Score: Resting HR (bpm): 83 Peak HR (bpm): 108 Resting BP (mmHg): 147 / 82 Peak BP (mmHg): 156 / 89 MPHR: 163 Target HR: 139 % MPHR: 66 METS: 1.0 Total Dose: Peak Dose: Atropine: Double Product: 94421 BP Response: Stress Termination: INFUSION COMPLETE Stress Symptoms: DIFFICULTY IN BREATHING Stress Summary: ECG ANALYSIS Resting ECG: Stress ECG: CONCLUSIONS Non-diagnostic electrocardiogram stress testing Please follow up on the Cardiolite portion Dr. Jus Keith MD (Electronically Signed) Final Date: 21 September 2022 11:46
--- NOTE | 2022-09-21 12:09 | NM ---
EXAMINATION TYPE: NM stress lexiscan cardiolite DATE OF EXAM: 09/21/2022 COMPARISON: NONE HISTORY: Potential myocardial infarction as well and TECHNIQUE: After the intravenous administration of 9.8 mCi Tc 99m Sestamibi - Cardiolite resting SPE CT images acquired 45 minutes post injection. At peak stress 26.2 mCi Tc 99m Sestamibi - Stress images obtained 35 minutes post injection The patient was stressed with 0.4mg Lexiscan. FINDINGS: There is scattered diminished radiotracer along the anterior wall on resting images. The diminished r adiotracer accumulation along the anterior wall is greater on the stress images compatible with some stress-induced ischemic change. Greatest at the distal anterior wall near the cardiac apex. Additiona lly, there may be a small area of stress-induced ischemic change along the inferior wall adjacent to the cardiac apex stress images which is normal radiotracer distribution on the resting images. Color maps appear to have smaller reversible perfusion defects identified. There is dyskinesia of the anterior wall near the apex. Some dyskinesia of the cardiac apex is also p resent with Ejection fraction is calculated to be 76 % is normal. IMPRESSION: 1. Stress-induced ischemic changes along the mid to distal anterior wall with a second small focal ar ea of distal inferior wall stress-induced ischemic change. 2. There is some dyskinesia of the anterior wall.
== END | disposition home or self-care (01) ==
LOC: RADNMMAIN 08:45
PROVIDERS: ATTEND Internal Medicine Clinical Cardiac Electrophysiology
DX: I25.10 Atherosclerotic heart disease of native coronary artery without angina pectoris (principal); G24.9 Dystonia, unspecified; I10 Essential (primary) hypertension; E11.9 Type 2 diabetes mellitus without complications; E78.00 Pure hypercholesterolemia, unspecified; Z87.891 Personal history of nicotine dependence
CPT/HCPCS: 93017; 78452; A9500; J2785

== ENCOUNTER → 2022-09-25 | Day surgery (SDC) | payer BC ==
[2022-09-21 16:30] VITALS: BMI 34.7
[~2022-09-25] MED LIST changes: +ACETAMINOPHEN TAB 500 MG TAB PO ONE; +ADENOSINE 90 MG in SODIUM CHLORIDE 0.9% 60 ML IVP ONE; +ALPRAZolam 0.25 MG TAB PO PRN; +ALPRAZolam 0.5 MG TAB PO PRN; +ASPIRIN 325 MG TAB PO ONE; +ATORVASTATIN 80 MG TAB PO ONE; +HEPARIN SODIUM 1,000 UN/ML (10ML VL) IV ONE; +HEPARIN SODIUM 1,000 UN/ML (10ML VL) ONE; +HEPARIN SODIUM,PORCINE 10,000 UNIT in SODIUM CHLORIDE 0.9% 1,000 ML IRRIGATION PRN; +HEPARIN SODIUM,PORCINE 2,500 UNIT in SODIUM CHLORIDE 0.9% 250 ML IRRIGATION PRN; +IOPAMIDOL-370 125ML BTL INJ ONE; +LIDOCAINE 1% INJ 10MG/ML (30 ML VIAL-PF) SQ ONE; +MIDAZOLAM 2 MG/2 ML VIAL IV ONE; +NITROGLYCERIN SL TABS 0.4 MG TAB SUBLINGUAL PRN; -REGADENOSON 0.4 MG/5 ML SYRINGE IV PRN; +RX INFO: IV CONTRAST WAS GIVEN 1 EACH MISC MISCELLANE PRN; +SODIUM CHLORIDE 0.9% 1,000 ML IV ONE; +SODIUM CHLORIDE 0.9% 1,000 ML IV SCH; +SODIUM CHLORIDE 0.9% 1,000 ML in EMPTY BAG 1 BAG IV SCH; +VERAPAMIL 2.5 MG/ML 2 ML AMP ONE; +VERAPAMIL SYRINGE (5 MG/10 ML) INTRAARTER ONE
[2022-09-25 06:47] LABS: Glucose,Whole Blood 102 mg/dL (70-110)
[2022-09-25 06:49] VITALS: RESP 16; TEMP 97
--- NOTE | 2022-09-25 08:34 | P.PCN ---
Date of Procedure: 09/25/22 Operative Findings: CARDIAC CATHETERIZATION PERFORMING PHYSICIAN: Jus Keith MD, RPVI PROCEDURE PERFORMED: 1. Selective right and left coronary angiogram 2. Left heart catheterization 3. FFR of the LCx INDICATION: This is a 56-year-old female patient was hypertension and dyslipidemia was seen recently by Dr. Hare for further cardiac evaluation before noncardiac surgery/orthopedic surgery which she underwent myocardial perfusion imaging stress test him in to be abnormal showing an anterior and inferior ischemia. In the light of that heart catheterization was advised COMPLICATION: None APPROACH: Right radial artery LEVEL OF SEDATION: Moderate with a sedation length of 43 PROCEDURE DESCRIPTION: After obtaining an informed consent, the patient was brought to cardiac blood bank laboratory professional. Local anesthesia was performed using lidocaine subcutaneously. The right radial artery was cannulated using Seldinger technique, the guidewire passed easily, following that we advanced a 5-Cameroonian sheath dilator assembly, the wire and dilator were removed and sheath was flushed. Following that, 2 mg of verapamil along with 5000 unit heparin were given. Selective right and left coronary angiogram using a 6-Cameroonian JR4 and JL 3.5 catheters. Following that we did left heart catheterization using 6-Cameroonian pigtail catheter. The procedure was completed there was no complication. SELECTIVE CORONARY ANGIOGRAM: The right coronary artery: Large caliber vessel and dominant vessel. The proximal RCA has mild disease appears to be in the range of 30% only. Left main: Angiographically normal. Bifurcates into LCx and LAD The left circumflex: Arch caliber vessel a codominant vessel. The mid LCx has intermediate lesion appears to be in the range of 50%. FFR was performed and came in to be an 0.93 The left anterior descending artery: Has mild disease only FFR of the LCx: Anticoagulation was initiated using heparin. After zeroing the Doppler wire equalizing between the Doppler wire and the guiding catheter which was JL 3.5 guiding catheter with an FFR with IV adenosine infusion and that came in to be nonischemic and 0.93. HEMODYNAMICS: The LVEDP was 20 mmHg was no significant gradient across aortic valve CONCLUSION: 1. Intermediate lesion involving a dominant left circumflex. FFR was applied and came in to be 0.93 which is nonischemic. 2. Elevated left-sided filling pressure POSTPROCEDURE MANAGEMENT: Aggressive holesterol control and risk factors modification and follow-up with Dr. Hare
[2022-09-25 14:21] VITALS: PULSE 90
[2022-09-25 14:28] VITALS: BP 155/75
== END ==
LOC: CATHCVL 06:13
PROVIDERS: ATTEND Internal Medicine Interventional Cardiology
DX: R94.39 Abnormal result of other cardiovascular function study (principal); I25.10 Atherosclerotic heart disease of native coronary artery without angina pectoris
CPT/HCPCS: 93571; 93458; C1769 ×2; C1887; C1894; J2250; J2001; J1644; J0153; Q9967

== ENCOUNTER → 2023-04-03 | Outpatient (CLI) | payer BC ==
[2023-04-03 13:32] LABS: African American GFR (CKD) >90 (>60 ml/min/1.73 sqM); Blood Urea Nitrogen 14 mg/dL (7-17); Non-African American GFR(CKD) 88 (>60 ml/min/1.73 sqM)
--- NOTE | 2023-04-03 14:22 | CT ---
EXAMINATION TYPE: CT brain wo/w con CT DLP: 2333 mGycm, Automated exposure control for dose reduction was used. DATE OF EXAM: 04/03/2023 2:11 PM COMPARISON: None. CLINICAL INDICATION:Female, 57 years old with history of G83.11; PHH, paresis of right leg TECHNIQUE: Axial CT images of the brain were obtained with coronal and sagittal reformats created and reviewed. Contrast used:100ml mL of Isovue 300 without and with IV Contrast, Oral contrast used: none. FINDINGS: Extra-axial spaces: No abnormal extra-axial fluid collections. Ventricular system: Within normal limits Cerebral parenchyma: No acute intraparenchymal hemorrhage or mass effect. The watson-white junction is well differentiated. No abnormal enhancement is seen after the administration of intravenous contras t. Cerebellum: Unremarkable. Mass effect: No evidence of midline shift. Intracranial vasculature: unremarkable Soft tissues: Normal. Calvarium/osseous structures: No depressed skull fracture. Paranasal sinuses and mastoid air cells: Clear. Visualized orbits: Orbital contents are intact. IMPRESSION: No acute intracranial process.
--- NOTE | 2023-04-03 14:24 | CT ---
EXAMINATION TYPE: CT lumbar spine wo con CT DLP: 739 mGycm, Automated exposure control for dose reduction was used. DATE OF EXAM: 04/03/2023 2:14 PM COMPARISON: None CLINICAL INDICATION:Female, 57 years old with history of G83.11, paresis right leg TECHNIQUE: Multiple axial images were obtained from the midportion of T11 through the sacroiliac javi nts. Soft tissue and bone windows in coronal and sagittal planes were obtained and reviewed. Contrast used: none. Oral contrast used: none. FINDINGS: Alignment: There are 5 lumbar type vertebral bodies within normal alignment. Bone: No evidence of fracture is identified. Discs: Multilevel disc degeneration changes are present. There is disc bulging at multiple levels. Disc bulg ing worse at L3-L4 and L4-L5 with at least moderate spinal canal stenosis. There is at least moderate right L4-L5 and L5-S1 neural foraminal stenosis secondary to facet joint arthropathy and disc bulge. The left neural foramen demonstrate mild scattered neural foraminal stenosis throughout the lumbar s pine. Other: Atherosclerosis of the arterial vasculature. IMPRESSION: 1. No evidence for spinal fracture. 2. Moderate L4-L5 and L5-S1 right neural foraminal stenosis secondary disc bulge and facet joint arth ropathy. 3. Disc bulge at L3-L4 and L4-L5 with at least moderate spinal canal stenosis. Consider further evalu ation with MRI.
== END | disposition home or self-care (01) ==
LOC: RADCTMAIN 12:48
PROVIDERS: ATTEND Family Medicine
DX: M51.36 Other intervertebral disc degeneration, lumbar region (principal); M47.816 Spondylosis without myelopathy or radiculopathy, lumbar region; G83.11 Monoplegia of lower limb affecting right dominant side; M99.73 Connective tissue and disc stenosis of intervertebral foramina of lumbar region
CPT/HCPCS: 82565; 84520; 72131; 70470; 36415; Q9967

== ENCOUNTER → 2023-04-23 | Outpatient (CLI) | payer BC ==
--- NOTE | 2023-04-23 09:11 | MR ---
EXAMINATION TYPE: MR lumbar spine wo con DATE OF EXAM: 04/23/2023 COMPARISON: Correlation CT 04/03/2023 HISTORY: 57-year-old female M54.16 Low back pain radiating into the bilateral buttocks and right lowe r extremity, right leg numbness TECHNIQUE: Multiplanar, multisequence images of the lumbar spine were acquired without IV contrast. FINDINGS: Vertebral body heights are preserved. No suspicious bone marrow replacement. Conus medullaris is normal. There is facet arthropathy within the mid to lower lumbar spine. This results in trace 1 anterolisthe sis at L3-L4 and L4-L5. Remaining alignment is maintained. Reactive edema particularly at the L5-S1 f acet joints. There is mild degenerative disc desiccation and disc bulging mid to lower lumbar spine. Corresponding ligamentum flavum thickening. 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 From T12 through L3 levels, no significant canal or foraminal stenosis. At L3-L4, there is facet arthropathy with grade 1 anterolisthesis, diffuse disc bulge, ligamentum fla vum thickening, and prominent dorsal epidural fat. Focal moderate to severe thecal sac compression wi th some minimal CSF signal remaining in the thecal sac here. There is an associated posterior annular fissure noted. Mild left neuroforaminal stenosis. At L4-L5, hypertrophic facet arthropathy with a trace grade 1 anterolisthesis, diffuse disc bulge, pr ominent dorsal epidural fat, and more pronounced ligamentum flavum thickening especially on the right . This results in focal moderate to severe thecal sac compression here as well with moderate right ne uroforaminal stenosis and possible impingement of the exiting right L4 nerve root. At L5-S1, mild disc bulge with ligamentum flavum thickening and facet arthropathy as well as prominen t dorsal epidural fat. Mild overall canal stenosis with mild bilateral neuroforaminal stenosis. No prevertebral or paravertebral soft tissue abnormality seen. IMPRESSION: 1. Facet arthropathy mid to lower lumbar spine with a degenerative trace grade 1 anterolisthesis L3-L 4 and L4-L5. Note reactive edema at the bilateral L5-S1 facet joints that could represent acute exace rbation of OA. 2. Mild degenerative disc disease mid to lower lumbar spine. 3. Along with these changes, there is also ligamentum flavum thickening and prominent dorsal epidural fat in the mid and lower lumbar spine. Changes are superimposed on a congenital spinal canal stenosi s (curyung AP spinal canal dimension of 9 mm). 4. Overall moderate to severe focal thecal sac compression at both L3-L4 and L4-L5 with minimal CSF s ignal remaining of the thecal sac at these levels. 5. At L4-L5, there is moderate right neuroforaminal stenosis with possible impingement of the exiting right L4 nerve root. 6. Mild bilateral neuroforaminal stenosis at L5-S1.
== END | disposition home or self-care (01) ==
LOC: RADMRIMAIN 05:42
PROVIDERS: ATTEND Family Medicine
DX: M51.16 Intervertebral disc disorders with radiculopathy, lumbar region (principal); M47.26 Other spondylosis with radiculopathy, lumbar region; M48.061 Spinal stenosis, lumbar region without neurogenic claudication; M43.16 Spondylolisthesis, lumbar region
CPT/HCPCS: 72148

== ENCOUNTER → 2023-06-06 | Outpatient (CLI) | payer BC ==
[2023-06-06 17:29] LABS: ALT 18 U/L (8-44); AST 19 U/L (13-35); Albumin 4.4 d/dL (3.8-4.9); Albumin/Globulin Ratio 1.63 Ratio (1.60-3.17); Alkaline Phosphatase 43 U/L (41-126); BUN/Creat Ratio 19.67 Ratio (12.00-20.00); Blood Urea Nitrogen 17.7 mg/dL (9.0-27.0); Carbon Dioxide 23.4 mmol/L (21.6-31.8); Chloride 105 mmol/L (96-109); Chol/HDL Ratio 3.48 Ratio; Globulin 2.7 d/dL (1.6-3.3); Glucose 106 mg/dL (70-110); Potassium 5.3 mmol/L (3.5-5.5); Sodium 139 mmol/L (135-145); Total Bilirubin <0.2 mg/dL (0.3-1.2); Total Protein 7.1 d/dL (6.2-8.2)
== END | disposition home or self-care (01) ==
LOC: LABWHC1 10:07
PROVIDERS: ATTEND Internal Medicine Clinical Cardiac Electrophysiology
DX: I10 Essential (primary) hypertension (principal); I25.10 Atherosclerotic heart disease of native coronary artery without angina pectoris; E11.9 Type 2 diabetes mellitus without complications
CPT/HCPCS: 36415; 80053; 80061

== ENCOUNTER 2023-09-05 06:56 | Day surgery (SDC) | payer BC ==
[~2023-09-05 06:56] MED LIST changes: -ACETAMINOPHEN TAB 500 MG TAB PO ONE; -ADENOSINE 90 MG in SODIUM CHLORIDE 0.9% 60 ML IVP ONE; -ALPRAZolam 0.25 MG TAB PO PRN; -ALPRAZolam 0.5 MG TAB PO PRN; -ASPIRIN 325 MG TAB PO ONE; -ATORVASTATIN 80 MG TAB PO ONE; -HEPARIN SODIUM 1,000 UN/ML (10ML VL) IV ONE; -HEPARIN SODIUM 1,000 UN/ML (10ML VL) ONE; -HEPARIN SODIUM,PORCINE 10,000 UNIT in SODIUM CHLORIDE 0.9% 1,000 ML IRRIGATION PRN; -HEPARIN SODIUM,PORCINE 2,500 UNIT in SODIUM CHLORIDE 0.9% 250 ML IRRIGATION PRN; -IOPAMIDOL-370 125ML BTL INJ ONE; +LACTATED RINGERS 1,000 ML IV SCH; -LIDOCAINE 1% INJ 10MG/ML (30 ML VIAL-PF) SQ ONE; -MIDAZOLAM 2 MG/2 ML VIAL IV ONE; -NITROGLYCERIN SL TABS 0.4 MG TAB SUBLINGUAL PRN; -RX INFO: IV CONTRAST WAS GIVEN 1 EACH MISC MISCELLANE PRN; -SODIUM CHLORIDE 0.9% 1,000 ML IV ONE; -SODIUM CHLORIDE 0.9% 1,000 ML IV SCH; -SODIUM CHLORIDE 0.9% 1,000 ML in EMPTY BAG 1 BAG IV SCH; -VERAPAMIL 2.5 MG/ML 2 ML AMP ONE; -VERAPAMIL SYRINGE (5 MG/10 ML) INTRAARTER ONE
[2023-09-05 07:42] LABS: Glucose,Whole Blood 105 mg/dL (70-110)
[2023-09-05 07:44] VITALS: TEMP 97.2
[2023-09-05] MEDS ORDERED: LIDOCAINE 1% INJ 10MG/ML (20 ML MDV) ONE (07:53)
[2023-09-05] MEDS ORDERED: PROPOFOL 10 MG/ML 20 ML VIAL IV ONE (07:53)
--- NOTE | 2023-09-05 08:23 | P.PCN ---
Date of Procedure: 09/05/23 Procedure(s) Performed: Brief history: Patient is a pleasant 57-year-old white female scheduled for an elective upper endoscopy as well as colonoscopy as a part of evaluation of I deficiency anemia. History of gastric bypass surgery several years ago. Procedure performed: Esophagogastroduodenoscopy with biopsy Colonoscopy Preoperative diagnosis: Iron deficiency anemia Anesthesia: [facility] Procedure: After informed consent was obtained from the patient was brought into the endoscopy unit and IV sedation was administered by anesthesia under continuous monitoring. Initially upper endoscopy was done. The Olympus GF 160 video endoscope was inserted inserted into the mouth and esophagus intubated without any difficulty and was gradually advanced into the stomach and Keturah-en-Y anastomosis was visualized and appeared normal. The scope was advanced into the proximal jejunum which appeared normal biopsies were done from the proximal jejunum to evaluate for celiac disease. The scope was then withdrawn into the gastric pouch. Mild gastritis and gastric polyps noted and biopsies were done. The scope was then withdrawn into the esophagus. The GE junction was located at 36 cm to the incisors. It appeared regular with no erythema erosions or ulcerations. Rest of the esophagus appeared normal. Patient tolerated the procedure well. At this time the patient continued to remain sedation. Initial digital rectal examination was normal. Olympus CF 160 video colonoscope was then inserted into the rectum and gradually advanced to the cecum without any difficulty. Careful examination was performed as the scope was gradually being withdrawn. The prep was excellent. The cecum, ascending colon, transverse colon, descending colon, sigmoid colon and rectum appeared normal. Retroflexion was performed in the rectum and no lesions were noted. Patient tolerated the procedure well. Impression: 1. Upper endoscopy revealed mild gantritis of the gastric pouch but normal- appearing Keturah-en-Y anastomosis 2. Colonoscopy was within normal limits with no evidence of colorectal neoplasia Recommendations: Findings of this examination were discussed with the patient as well as her family. She was advised to follow with the biopsy results. She was advised to have a repeat screening colonoscopy in 10 years.
[2023-09-05 09:02] VITALS: BP 128/82; PULSE 85; RESP 16
== END 2023-09-05 09:08 | disposition home or self-care (01) ==
LOC: ORWHC2ENDO 06:56
PROVIDERS: ATTEND Internal Medicine Gastroenterology
DX: K29.50 Unspecified chronic gastritis without bleeding (principal); D50.9 Iron deficiency anemia, unspecified; I10 Essential (primary) hypertension; K21.9 Gastro-esophageal reflux disease without esophagitis; E78.5 Hyperlipidemia, unspecified; Z95.5 Presence of coronary angioplasty implant and graft; E03.9 Hypothyroidism, unspecified; Z79.84 Long term (current) use of oral hypoglycemic drugs; Z98.84 Bariatric surgery status; Z79.83 Long term (current) use of bisphosphonates; Z79.899 Other long term (current) drug therapy; Z79.890 Hormone replacement therapy
CPT/HCPCS: 88305; 45378; 43239; J2001; J2704

== ENCOUNTER → 2024-03-25 | Outpatient (CLI) | payer BC ==
[2024-03-25 18:51] LABS: Basophils # (A) 0.09 X 10*3/uL (0.00-0.10); Basophils % (A) 1.1 %; Eosinophils # (A) 0.47 X 10*3/uL (0.04-0.35); Eosinophils % (A) 5.6 %; HCT 38.6 % (37.2-46.3); HGB 12.1 g/dL (12.0-15.0); Lymphocytes # (A) 3.19 X 10*3/uL (0.90-5.00); Lymphocytes % (A) 38.2 %; MCH 29.6 pg (27.0-32.0); MCHC 31.3 g/dL (32.0-37.0); MCV 94.4 FL (80.0-97.0); Monocytes # (A) 0.57 X 10*3/uL (0.20-1.00); Monocytes % (A) 6.8 %; NRBC Per 100 WBC 0 X 10*3/uL (0.00-0.01); Neutrophils % (A) 47.9 %; Platelet Count 349 X 10*3/uL (140-440); RBC 4.09 X 10*6/uL (4.10-5.20); RDW 13.8 % (11.5-14.5); WBC 8.35 X 10*3/uL (4.50-10.00)
== END | disposition home or self-care (01) ==
LOC: LABWHC1 10:46
PROVIDERS: ATTEND Internal Medicine Gastroenterology
DX: D50.9 Iron deficiency anemia, unspecified (principal)
CPT/HCPCS: 36415; 85025

== ENCOUNTER → 2024-06-03 | Outpatient (CLI) | payer BC ==
--- NOTE | 2024-06-03 18:29 | CT ---
EXAMINATION TYPE: CT chest wo con CT DLP: 501.70 mGycm, Automated exposure control for dose reduction was used. DATE OF EXAM: 06/03/2024 1:39 PM COMPARISON: No comparison CT. CLINICAL INDICATION:Female, 58 years old with history of R91.1 SPN; PHH, solitary pulmonary nodule alexander spected. TECHNIQUE: Multiple axial images were obtained through the chest. Sagittal and coronal reformats were created for review. Contrast used: mL of (None if empty) Oral contrast used: (None if empty) FINDINGS: LUNGS/ PLEURA: A 6 mm solid nodule is seen in the bilateral posterior right lower lobe on series 3, i mage 47. The lung parenchyma appears otherwise unremarkable. AIRWAY: Patent and unremarkable. HEART: Size within normal limits. Heavily calcified left anterior descending coronary artery. MEDIASTINUM: No gross evidence of adenopathy. VASCULATURE: No aortic aneurysm. MUSCULOSKELETAL: No acute osseous abnormalities SOFT TISSUES/LYMPH NODES: Unremarkable. LOWER NECK: No significant findings. UPPER ABDOMEN: Cholecystectomy clips in the gallbladder fossa. No acute finding in the upper abdomen. IMPRESSION: There is a solid nodule is slightly degraded millimeters right lung base. A solid nodule slightly greater than 6 mm is seen posterior right lower. If the patient is low risk, CT follow-up at 6-12 months recommended then consider CT at 18-24 months. If the patient is a tobacco user or other high risk category seated the follow-up at 612 months and t hen 18-12 months. Follow up recommendations for incidental pulmonary nodules, if there are any, are per [employer]ischner?s [employer] or [employer] [place] [employer]. https://radiopaedia.org/articles/gtraqeiwpg-izzxxbp-xmasufqrl-jdkolh-tupgyfodmjupwnw-2?lang=us
== END | disposition home or self-care (01) ==
LOC: RADCTMAIN 13:14
PROVIDERS: ATTEND Family Medicine
DX: R91.1 Solitary pulmonary nodule (principal)
CPT/HCPCS: 71250

== ENCOUNTER → 2024-09-23 | Outpatient (CLI) | payer BC ==
[2024-09-23 16:59] LABS: Basophils # (A) 0.09 X 10*3/uL (0.00-0.10); Basophils % (A) 1.2 %; Eosinophils # (A) 0.24 X 10*3/uL (0.04-0.35); Eosinophils % (A) 3.3 %; HCT 39.4 % (37.2-46.3); HGB 12.4 g/dL (12.0-15.0); Lymphocytes # (A) 2.99 X 10*3/uL (0.90-5.00); Lymphocytes % (A) 40.6 %; MCH 29.9 pg (27.0-32.0); MCHC 31.5 g/dL (32.0-37.0); MCV 94.9 FL (80.0-97.0); Monocytes # (A) 0.62 X 10*3/uL (0.20-1.00); Monocytes % (A) 8.4 %; NRBC Per 100 WBC 0 X 10*3/uL (0.00-0.01); Neutrophils # (A) 3.41 X 10*3/uL (1.80-7.70); Neutrophils % (A) 46.4 %; Platelet Count 298 X 10*3/uL (140-440); RBC 4.15 X 10*6/uL (4.10-5.20); RDW 13.7 % (11.5-14.5); WBC 7.36 X 10*3/uL (4.50-10.00)
== END | disposition home or self-care (01) ==
LOC: LABWHC1 10:24
PROVIDERS: ATTEND Internal Medicine Gastroenterology
DX: D50.9 Iron deficiency anemia, unspecified (principal)
CPT/HCPCS: 36415; 85025

== ENCOUNTER 2025-05-05 10:21 | Day surgery (SDC) | payer BC ==
[~2025-05-05 10:21] MED LIST changes: +ALPRAZolam 0.25 MG TAB PO PRN; +HEPARIN SODIUM,PORCINE (1 ML) 2,500 UNIT in SODIUM CHLORIDE 0.9% 250 ML IRRIGATION PRN; +HEPARIN SODIUM,PORCINE 10,000 UNIT in SODIUM CHLORIDE 0.9% 1,000 ML IRRIGATION PRN; -LACTATED RINGERS 1,000 ML IV SCH; +NITROGLYCERIN SL TABS 0.4 MG TAB SUBLINGUAL PRN
[2025-05-05] MEDS: SODIUM CHLORIDE 0.9% 1,000 ML in EMPTY BAG 1 BAG IV SCH ×2 (10:47→15:53)
[2025-05-05 10:52] LABS: Glucose,Whole Blood 106 mg/dL (70-110)
[2025-05-05 10:57] LABS: Basophils % (A) 1.2 %; Eosinophils # (A) 0.36 10*3/uL (0.04-0.35); Eosinophils % (A) 4.3 %; HCT 40.3 % (37.2-46.3); HGB 13.7 g/dL (12.0-15.0); Lymphocytes # (A) 3.02 10*3/uL (0.90-5.00); Lymphocytes % (A) 35.7 %; MCH 30.1 pg (27.0-32.0); MCV 88.6 fL (80.0-97.0); Monocytes # (A) 0.68 10*3/uL (0.20-1.00); Neutrophils # (A) 4.28 10*3/uL (1.80-7.70); Neutrophils % (A) 50.6 %; Platelet Count 310 10*3/uL (140-440); RBC 4.55 10*6/uL (4.10-5.20); RDW 12.4 % (11.5-14.5); WBC 8.46 10*3/uL (4.50-10.00)
[2025-05-05] MEDS: ASPIRIN 325 MG TAB PO STA (11:03)
[2025-05-05] MEDS: ATORVASTATIN 80 MG TAB PO STA (11:03)
[2025-05-05] MEDS: ALPRAZolam 0.5 MG TAB PO PRN (11:04)
[2025-05-05 11:19] LABS: African American GFR (CKD) >90 (>60 ml/min/1.73 sqM); Anion Gap 10 mmol/L; Blood Urea Nitrogen 15 mg/dL (7-17); Calcium 9.7 mg/dL (8.4-10.2); Carbon Dioxide 21 mmol/L (22-30); Chloride 107 mmol/L (98-107); Glucose 111 mg/dL (74-99); Non-African American GFR(CKD) >90 (>60 ml/min/1.73 sqM); Potassium 4.2 mmol/L (3.5-5.1); Sodium 138 mmol/L (137-145)
[2025-05-05] MEDS: IV FLUID CONTINUATION 750 ML IV ONE (12:16)
[2025-05-05] MEDS: MIDAZOLAM 2 MG/2 ML VIAL IVP ONE (12:26)
[2025-05-05] MEDS: HEPARIN SODIUM (1,000 UNIT/ML) 1,000 UNIT in SODIUM CHLORIDE 0.9% 1,000 ML IRRIGATION ONE (13:09)
[2025-05-05] MEDS: HEPARIN SODIUM,PORCINE (1 ML) 2,500 UNIT in SODIUM CHLORIDE 0.9% 250 ML IRRIGATION ONE (13:10)
[2025-05-05] MEDS: LIDOCAINE 1% INJ 10MG/ML (20 ML MDV) SQ ONE (13:18)
[2025-05-05] MEDS: VERAPAMIL SYRINGE (5 MG/10 ML) INTRAARTER ONE (13:19)
[2025-05-05] MEDS: HEPARIN SODIUM 1,000 UN/ML (10ML VL) IVP ONE (13:22)
[2025-05-05] MEDS: PRASUGREL 10 MG TAB PO ONE (13:37)
[2025-05-05] MEDS: NITROGLYCERIN 1000MCG/10ML SYRINGE INTRACORON ONE (13:55)
[2025-05-05] MEDS: MORPHINE SULFATE 4 MG/ML SYRINGE IVP ONE (13:57)
[2025-05-05] MEDS: IOPAMIDOL-370 100ML BTL INJ ONE ×2 (13:59→14:08)
[2025-05-05] MEDS ORDERED: RX INFO: IV CONTRAST WAS GIVEN 1 EACH MISC MISCELLANE PRN (14:10)
[2025-05-05] MEDS ORDERED: ZOLPIDEM 5 MG TAB PO PRN (14:10)
[2025-05-05] MEDS ORDERED: MAG HYDROX/AL HYDROX/SIMETH 30 ML CUP PO PRN (14:10)
[2025-05-05] MEDS ORDERED: ATROPINE SULFATE 0.1 MG/ML 10ML SYRINGE IV PRN (14:10)
[2025-05-05] MEDS ORDERED: NITROGLYCERIN SL TABS 0.4 MG TAB SUBLINGUAL PRN (14:10)
[2025-05-05 17:09] LABS: Glucose,Whole Blood 144 mg/dL (70-110)
[2025-05-05] MEDS: GABAPENTIN 400 MG CAP PO SCH (17:53)
[2025-05-05 19:36] LABS: Glucose,Whole Blood 208 mg/dL (70-110)
[2025-05-05 20:02] VITALS: RESP 17
--- NOTE | 2025-05-05 20:42 | P.PCN ---
Date of Procedure: 05/05/25 Operative Findings: Cardiac catheter and percutaneous coronary intervention Performing physician Jus Keith MD Procedure performed 1. Selective right and left coronary angiogram and left heart catheterization 2. Successful stenting of the mid and distal LCx using 5.0 x 28 mm Xience TIM as well as 4.0 x 23 mm Xience TIM with and excellent angiographic results 3. Adjunctive use of IFR and IVUS 4. Ultrasound-guided access of the right radial artery Indication Symptomatic 59-year-old female patient who is known to have CAD and noted to have intermediate disease involving the LCx documented on heart catheterizations few years ago continues to be symptomatic with chest discomfort. She underwent a stress test and that came to be abnormal with ischemia and in the light of that a heart catheterization was advised Approach Right radial artery Complication None Level of sedation Moderate with sedation length of about 68 minutes Procedure description After obtaining informed consent the patient was brought to the cardiac Audience Development Manager. The right radial artery was cannulated using micropuncture technique under ultrasound guidance the micropuncture wire passed easily then I placed a 6 Danish 11 cm sheath at the right radial artery. At that point I gave the patient 2 mg of verapamil intra-arterial and 5000 units of heparin intravenous with continuous ACT monitoring. Selective right and left coronary angiogram and left heart catheterization performed using JR4 and JL 3.5 catheters. After that I decided to do an IFR of the LCx. After zeroing another wire and equalized in between the valvular wire and guiding catheter the left main was engaged and the LCx was wired with a Doppler wire and the IFR came to be 0.89 and at that point I decided to intervene on the LCx I did loaded the patient with Effient 60 mg once. Subsequently I did not keep the Doppler wire in the spot and I did IVUS of the left circumflex which showed a diameter of 4.5 to 5 mm. Predilatation was performed using 3.5 mm NC balloon and subsequently I advanced a 5.0 x 28 mm stent and that was Xience TIM where t he stent was positioned under fluoroscopy guidance and deployed under fluoroscopy guidance. Postdilatation was performed using 5 mm NC balloon with adjunctive use of GuideLiner because I had difficulties advancing the stent and the balloon. After that an angiogram was performed and showed distal edge dissection appeared to be flow-limiting. I decided to stent. Attempting advancing 4.0 x 23 mm stent was unsuccessful but was successful after a did pull the GuideLiner out and advance a run-through wire. Over the run-through wire I was able to advance the stent but not over the Doppler wire. The stent was positioned under fluoroscopy guidance was about 3 to 4 mm overlap between the first stent and second stent. The stent was deployed under fluoroscopy guidance and the overlap area was dilated using the stent balloon. Final angiogram showed excellent angiographic results with JORGE-3 flow and the patient tolerated the procedure very well Selective coronary angiogram The RCA is a large caliber vessel and the dominant vessel with mild to moderate disease appears to be the same as before has not changed compared to before with no evidence of high-grade stenosis identified The left main is angiographically normal The LCx is a large-caliber vessel codominant vessel with intermediate to severe disease involving the proximal to midportion on event documented to be flow- limiting by Doppler wire The LAD is a large-caliber vessel and appeared to be angiographically normal with no evidence of high-grade stenosis. Hemodynamic The LVEDP was about 18 mmHg with no significant gradient across the aortic valve Conclusion Severe disease involving the LCx. I did perform a successful PCI of the LCx Mild to moderate disease involving the RCA appeared to be the same as before Postprocedure management Dual antiplatelet therapy using aspirin and Effient for at least 6 months Aggressive cholesterol control Risk factors modification Follow-up with the patient
[2025-05-05] MEDS: CYCLOBENZAPRINE 10 MG TAB PO SCH (21:34)
[2025-05-05] MEDS: VALSARTAN 160 MG TAB PO SCH (21:34)
[2025-05-05] MEDS: PANTOPRAZOLE 40 MG TABLET PO SCH (21:34)
[2025-05-06 02:54] VITALS: TEMP 97.5
[2025-05-06 06:19] LABS: African American GFR (CKD) >90 (>60 ml/min/1.73 sqM); Non-African American GFR(CKD) >90 (>60 ml/min/1.73 sqM)
[2025-05-06 06:21] LABS: Glucose,Whole Blood 100 mg/dL (70-110)
[2025-05-06 07:22] VITALS: BP 138/83; PULSE 77
[2025-05-06] MEDS ORDERED: ASPIRIN 81 MG PO SCH (09:00)
[2025-05-06] MEDS: METOPROLOL SUCCINATE (ER) 25 MG TAB.ER.24H PO SCH (09:20)
[2025-05-06] MEDS: amLODIPine 5 MG TAB PO SCH (09:21)
[2025-05-06] MEDS: FERROUS SULFATE 325 MG TAB PO SCH (09:21)
[2025-05-06] MEDS: ATORVASTATIN 20 MG TAB PO SCH (09:21)
[2025-05-06] MEDS: ASPIRIN 81 MG PO SCH (09:21)
[2025-05-06] MEDS: LORATADINE 10 MG TAB PO SCH (09:22)
[2025-05-06] MEDS: PRASUGREL 10 MG TAB PO SCH (10:09)
--- NOTE | 2025-05-06 11:22 | P.DS ---
Providers Attending physician: Jus Keith Consults: 05/05/25 14:11 Consult Physician Routine Consulting Provider: [facility] Consult Reason/Comments: Post Interventional patient Do you want consulting provider notified?: Already Contacted Primary care physician: Farhad [facility] Course: The patient is a pleasant 67-year-old female patient who underwent yesterday heart catheterization and PCI of the LCx coronary artery She was seen and evaluated this morning. She is asymptomatic and hemodynamically stable. The patient is going to be discharged home on dual antiplatelet therapy as well as statin. 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 Plan - Discharge Summary Discharge Rx Participant: No New Discharge Prescriptions: New Prasugrel [Effient] 10 mg PO DAILY #90 tab Continue Cyclobenzaprine [Flexeril] 10 mg PO HS Aspirin 81 mg PO DAILY Albuterol Sulfate [Ventolin HFA] 1 - 2 puff INHALATION RT-QID PRN PRN Reason: Shortness Of Breath amLODIPine [Norvasc] 5 mg PO QAM Omeprazole [PriLOSEC] 20 mg PO HS Gabapentin 800 mg PO TID Rosuvastatin Calcium 10 mg PO DAILY Dulaglutide [Trulicity] 3 mg SQ MO Loratadine [Claritin] 10 mg PO QAM Metoprolol Succinate (ER) [Toprol XL] 12.5 mg PO QAM Valsartan 320 mg PO HS Ibuprofen 800 mg PO BID PRN PRN Reason: Back pain Ferrous Sulfate [Feosol] 325 mg PO QAM Empagliflozin [Jardiance] 25 mg PO DAILY Discharge Medication List Aspirin 81 mg PO DAILY 03/16/17 [History] Cyclobenzaprine [Flexeril] 10 mg PO HS 03/16/17 [History] Albuterol Sulfate [Ventolin HFA] 1 - 2 puff INHALATION RT-QID PRN 09/25/19 [History] Dulaglutide [Trulicity] 3 mg SQ MO 09/21/22 [History] Loratadine [Claritin] 10 mg PO QAM 09/21/22 [History] Metoprolol Succinate (ER) [Toprol XL] 12.5 mg PO QAM 09/21/22 [History] Omeprazole [PriLOSEC] 20 mg PO HS 09/21/22 [History] amLODIPine [Norvasc] 5 mg PO QAM 09/21/22 [History] Ferrous Sulfate [Feosol] 325 mg PO QAM 09/03/23 [History] Gabapentin 800 mg PO TID 09/03/23 [History] Ibuprofen 800 mg PO BID PRN 09/03/23 [History] Valsartan 320 mg PO HS 09/03/23 [History] Empagliflozin [Jardiance] 25 mg PO DAILY 05/01/25 [History] Rosuvastatin Calcium 10 mg PO DAILY 05/01/25 [History] Prasugrel [Effient] 10 mg PO DAILY #90 tab 05/06/25 [Rx] Follow up Appointment(s)/Referral(s): Kyler Hare MD [STAFF PHYSICIAN] - 05/13/25 10:30 am (Appointment is @ main office on [address] Patient Instructions/Handouts: *Surgery [facility] - After Heart Catheterization - Registered Nurse Midwife Instructions, Heart Catheterization (DC), Coronary Intravascular Stent Placement (DC) Discharge Disposition: HOME SELF-CARE
[2025-05-11] MEDS ORDERED: NON FORMULARY DRUG (Dulaglutide [Trulicity] 1.5 MG/0.5 ML Each) SQ SCH (14:09)
== END 2025-05-06 10:12 | disposition home or self-care (01) ==
LOC: CATHCVL 10:21 → 6NMEDSUR 14:10 → CATHCVL 05-06 10:12
PROVIDERS: ATTEND Internal Medicine Interventional Cardiology
DX: I25.10 Atherosclerotic heart disease of native coronary artery without angina pectoris (principal); I10 Essential (primary) hypertension; E78.5 Hyperlipidemia, unspecified; E11.9 Type 2 diabetes mellitus without complications; Z79.02 Long term (current) use of antithrombotics/antiplatelets; Z79.82 Long term (current) use of aspirin; Z79.84 Long term (current) use of oral hypoglycemic drugs; Z79.899 Other long term (current) drug therapy
CPT/HCPCS: 99152; 99153; 92978; 93458; 93799; 80048; 82565; 85025; C9600; C1769 ×3; C1894; C1887 ×2; C1874 ×2; C1725 ×2; C1753; J2250; J2270; J1644 ×2; J2003; Q9967; J2305